=== PATIENT | female | born 1970 | race Caucasian/White ===

== ENCOUNTER 2021-03-01 06:14 | Emergency (ER) | payer MEDICARE, MEDICAID, SELFPAY ==
[2021-03-01 06:29] VITALS: BP 159/85; PULSE 83; RESP 18; TEMP 36.7; O2SAT 95; BMI 22.7
--- NOTE | 2021-03-01 06:54 | ED.DENTAL ---
HPI - Dental/Oral General Chief complaint: Dental/Oral Stated complaint: dental infection Time Seen by Provider: 03/01/21 06:18 Source: patient Mode of arrival: ambulatory Limitations: no limitations History of Present Illness HPI Narrative: Patient with swelling and pain that started 2 days ago Onset (ago): day(s) Duration: constant Severity: moderate Relieving factors: nothing Associated symptoms: other (jaw swelling) Treatment prior to arrival: oral analgesic Related Data Previous Rx's Medication Instructions Recorded amoxicillin-pot clavulanate 1 tab PO BID #20 tab 03/01/21 [Augmentin] naproxen [Naprosyn] 500 mg PO BID #20 tab 03/01/21 Allergies Allergy/AdvReac Type Severity Reaction Status Date / Time No Known Allergies Allergy Unverified 07/01/20 14:46 [No Known Allergies*] Review of Systems Constitutional: Constitutional: Reports no additional constitutional complaints Eyes: Eyes: Reports no additional eye complaints ENT: Denies dizziness Cardiovascular: Cardiovascular: Reports no additional cardiovascular complaints Respiratory: Respiratory: Reports as per HPI Gastrointestinal: Gastrointestinal: Reports no additional gastrointestinal complaints Genitourinary: Genitourinary: Reports no additional female genitourinary complaints Musculoskeletal: Musculoskeletal: Reports no additional musculoskeletal complaints Integumentary/Breasts: Skin/Breast: Denies rash Neurologic: Reports system reviewed and no additional complaints, except as documented, Denies dizziness and Denies Sensory deficit (Neuro) Psychiatric: Psychiatric: Denies anxiety PMFSH Past Medical History Medical History No known health problems Social History Social History Smoking Status: Current every day smoker Use of substances other than those prescribed or required for medical reasons: No Advance Directives: No Advance Directives Information Provided: No Patient : No Physical Exam Vital Signs: Vital Signs: Last Vital Signs Temp 98.1 F 03/01/21 06:29 Pulse 83 03/01/21 06:29 Resp 18 03/01/21 06:29 BP 159/85 H 03/01/21 06:29 Pulse Ox 95 03/01/21 06:29 Body Mass Index 22.7 Const: Other: patient is anxious and in pain Nutritional Appearance: average body habitus Orientation/consciousness: oriented to person and patient oriented x3 Limitations: no limitations HENMT: Other: right mandible with swelling and tenderness, no visible abscess or drainage, no swelling into neck Ears: external ears normal General nose exam: Normal external nose present Mouth: Normal oral and palatal mucosa present and oropharynx normal Throat: Yes posterior oropharynx normal Eyes: General: appearance normal, both eyes and all related structures Neck: Other: supple Neck: Yes normal visual inspection Chest: Chest palpation & inspection: normal inspection of the chest Resp: Auscultation: clear to auscultation bilaterally Cardio: Jugular venous distension: no JVD Rate: regular rate Rhythm: regular rhythm Heart sounds: S1 normal heart sound present and S2 normal heart sound present GI: Inspection: Yes normal to inspection Palpation (GI): Soft to palpation, nontender and No hepatosplenomegaly present Auscultation: normal bowel sounds : General: Yes no CVA tenderness Back/Spine/Pelvis: Back: no CVA tenderness Skin: General skin exam: no rashes or lesions noted Neuro: General: oriented to person and patient oriented x3 Cranial nerves: Yes CN's II-XII intact bilaterally Motor exam (neuro): 5/5 motor strength present throughout Sensory Exam: No Sensory deficit (Neuro) Extrem: General: Yes normal to inspection Psych: Appearance: grossly normal Course Course Course Narrative: will treat dental infection with augmentin Discharge Plan Discharge Clinical Impression: Dental caries, Dental abscess Fracture of tooth Qualifiers: Encounter type: subsequent encounter Fracture type: closed Fracture healing: with nonunion Qualified Code(s): S02.5XXK - Fracture of tooth (traumatic), subsequent encounter for fracture with nonunion Patient Disposition: Home, Self-Care Instructions: Dental Abscess (ED) Prescriptions: New naproxen [Naprosyn] 500 mg tablet 500 mg PO BID Qty: 20 RF: 0 amoxicillin-pot clavulanate [Augmentin] 875-125 mg tablet 1 tab PO BID Qty: 20 RF: 0 Referrals: Buzz Bermeo MD [Primary Care Provider] - 2 days
[2021-03-01] MEDS: Amoxicillin/Potassium Clav 875 MG TABLET PO (07:16)
[2021-03-01] MEDS: Ketorolac Tromethamine 60 MG/2 ML VIAL IM (07:16)
== END 2021-03-01 07:24 | disposition home or self-care (01) ==
PROVIDERS: Emergency Provider Emergency Medicine; PCP Internal Medicine
DX: K02.9 Dental caries, unspecified (principal); K04.7 Periapical abscess without sinus; S02.5XXA Fracture of tooth (traumatic), initial encounter for closed fracture; X58.XXXA Exposure to other specified factors, initial encounter; Y93.9 Activity, unspecified; Y92.9 Unspecified place or not applicable; Y99.9 Unspecified external cause status; F17.200 Nicotine dependence, unspecified, uncomplicated
CPT/HCPCS: 96372; 99284; J1885

== ENCOUNTER 2024-07-17 16:39 | Inpatient (IN) | payer MEDICARE, MEDICAID, SELFPAY ==
[2024-07-17] VITALS (10 sets, daily range): BP systolic 102–109; BP diastolic 51–72; PULSE 52–93; RESP 16–18; TEMP 36.6–39.3; O2SAT 62–95; BMI 21.9
--- NOTE | ~2024-07-17 | XR_ITS ---
EXAMINATION: XR CHEST CLINICAL INFORMATION: Pneumonia COMPARISON: 07/17/2024 TECHNIQUE: AP portable up view of the chest was obtained. FINDINGS: Extensive hazy opacity throughout the right lung that improvement. Additional patchy opacity at the left base without improvement. Lung volumes preserved. No gross effusion or pneumothorax. Stable heart and mediastinum without obvious mass or adenopathy. Nonobstructive gas pattern. XR/XR chest 1V IMPRESSION: No improvement in right greater than left airspace disease. Electronically signed by: Xavier Jackson MD 07/19/2024 10:43 AM EDT
--- NOTE | ~2024-07-17 | CT_ITS ---
EXAMINATION: CT CHEST WITHOUT CONTRAST CLINICAL INFORMATION: Right-sided infiltrate COMPARISON: Chest x-ray 07/19/2024 TECHNIQUE: Multidetector volumetric CT imaging of the chest was done. Axial MIP volume rendering provided. Sagittal and coronal reformatted images were obtained. This CT examination was performed using dose optimization techniques as appropriate, variously including the following: *Automated exposure control *Adjustment of mA and/or kV according to patient size (this includes techniques or standardized protocols for targeted exams where dose is matched to indication/reason for exam; i.e. extremities or head) *Use of iterative reconstruction technique DLP: 176 mGy-cm FINDINGS: RADIOLOGIST PHYSICIAN: Well-inflated lungs with increased reticular interstitial markings right lung. LUNGS: Both lungs are well-inflated with groundglass haziness seen throughout the right hemithorax and left upper lobe likely secondary to inflammatory or infectious etiology. There is no acute consolidation or airspace disease. No pulmonary nodules or masses seen. MEDIASTINUM: Thyroid lobes are symmetric and normal. The central trachea and the bronchi are widely patent. Heart size and the great vessels are normal caliber. There is a small pericardial effusion. There are reactive pretracheal 1 cm lymph node. No pericardial effusion seen. CORONARY ARTERY CALCIFICATION: None visualized on this study. PLEURA: Small bilateral pleural effusions with underlying atelectasis is noted. AXILLA: There are small bilateral axillary lymph nodes. The chest wall is unremarkable. UPPER ABDOMEN: Visualized liver, spleen, pancreas and bilateral adrenal glands are unremarkable. The gallbladder is unremarkable. OSSEOUS STRUCTURES: No aggressive lytic or sclerotic process seen. CT/CT chest wo IV con IMPRESSION: 1. Diffuse groundglass haziness throughout the right hemithorax and left upper lobe likely secondary to inflammatory or infectious etiology. 2. Small bilateral pleural effusions with underlying atelectasis. 3. Small pericardial effusion. 4. Small reactive pretracheal lymph node. Fleischner guidelines were followed. Electronically signed by: Bryan Howard MD 07/21/2024 07:38 PM EDT
--- NOTE | ~2024-07-17 | XR_ITS ---
EXAMINATION: XR CHEST CLINICAL INFORMATION: Cough. COMPARISON: Chest radiograph 02/11/2024. TECHNIQUE: 2 views of the chest were obtained. FINDINGS: New multifocal hazy and consolidative airspace opacities predominantly in the right lung with minimal opacities in the left lower lung. No pleural effusion. No pneumothorax. Unchanged cardiomediastinal silhouette. No acute osseous findings. XR/XR chest 2V IMPRESSION: Findings are most suggestive of a multifocal atypical pneumonia. Recommend close attention on follow-up after treatment to ensure resolution. Electronically signed by: Sri Harman MD 07/17/2024 07:12 PM EDT
--- NOTE | 2024-07-17 17:35 | ED.GENADULT ---
HPI - General Adult General Chief complaint: Upper Respiratory Symptoms Stated complaint: not feeling well, increased tremors Time Seen by Provider: 07/17/24 18:45 Source: patient Mode of arrival: ambulatory Limitations: no limitations History of Present Illness ED Provider: Nai [facility] narrative: Patient is a 54-year-old female with history of bipolar disorder, depression/anxiety, opiate use disorder on methadone, sober x5 months presenting to the emergency department with fevers, generalized body aches, weakness, tremors for the past 2-3 days. States that when she went to get out of bed last night she was so weak that she fell to her knees. Denies head strike or loss of consciousness. She is not anticoagulated. States she has been using lshl-gcb-heyytco [place] and other cold medications but is unsure if these are interacting with her psychiatric medications. recently tested positive for COVID. Denies any chest pain or palpitations. Denies any abdominal pain, nausea, vomiting, diarrhea. MD complaint: body aches Onset (ago): day(s) Treatments prior to arrival: other (OTC cold medication) Related Data Previous Rx's ?Medication ?Instructions ?Recorded amoxicillin 875 mg-potassium 1 tab PO BID #20 tabs 03/01/21 clavulanate 125 mg tablet (Augmentin) naproxen 500 mg tablet (Naprosyn) 500 mg PO BID #20 tabs 03/01/21 Allergies Allergy/AdvReac Type Severity Reaction Status Date / Time No Known Allergies Allergy Verified 07/17/24 17:42 [No Known Allergies*] Review of Systems Review of Systems: As per HPI. Yes all other systems are reviewed and are negative Constitutional: Constitutional: Reports as per HPI [facility] Past Medical History Medical History No known health problems Social History Social History Advance Directives: Yes Advance Directives Information Provided: No Advance Directives on File: No Do you have a plan to hurt others: No Plan Physical Exam ED Vital Signs: Vital Signs - 24 hr 07/17/24 17:35 07/17/24 19:07 07/17/24 20:00 Temperature 102.7 F H 101.8 F H 99.2 F Pulse Rate 93 76 Respiratory Rate 18 16 Blood Pressure 109/62 107/51 L Pulse Oximetry 94 62 L Oxygen Delivery Method Room Air Room Air BMI result Body Mass Index 21.9 Vital signs have been reviewed and appear to be correct. Blood pressure normal. Heart rate normal. Respiratory rate normal. Temperature febrile. Oxygen saturation normal. Const General: cooperative, healthy appearing and no acute distress Orientation/consciousness: oriented to person, oriented to place, oriented to time and patient oriented x3 Limitations: no limitations HENMT Head: Yes normocephalic and Yes atraumatic Ears: external ears normal General nose exam: Normal external nose present Face and sinus: Yes face symmetric Mouth: oropharynx normal and moist mucous membranes Throat: Yes uvula midline Eyes Pupils: Equal, round and reactive pupils present Neck Neck: Yes normal visual inspection and Yes supple Resp Effort & Inspection: normal respiratory effort and able to speak in complete sentences Auscultation: clear to auscultation bilaterally Cardio Rate: regular rate Rhythm: regular rhythm Heart sounds: S1 normal heart sound present and S2 normal heart sound present GI Palpation (GI): Soft to palpation and nontender Auscultation: normoactive bowel sounds General: Yes no CVA tenderness Back/Spine/Pelvis Back: no CVA tenderness Skin Other: visible sweat to face, chest General skin exam: elasticity normal and turgor normal Neuro General: oriented to person, oriented to place, oriented to time, patient oriented x3, moves all extremities, no focal motor deficits and CN's II-XI intact bilaterally Cranial nerves: Yes Equal, round and reactive pupils present Cognition (Neuro): normal cognition Extrem General: Yes full ROM, Yes no pedal edema and Yes no calf tenderness Psych Mental Status: mental status grossly normal Affect: normal affect Thought process: Normal thought process present Course Course Course Narrative: This is a Rapid Medical Examination (RME) performed by Hay Floyd PA-C in triage. Full HPI, ROS, assessment and treatment plan per primary provider in the Main ED. 54 yo female with history of bipolar disorder, depression/anxiety, opiate use disorder on methadone, sober x5 months, who presents to the ER from home via EMS for evaluation of not feeling well and tremors. reports weakness and fall out of bed last night. no head strike of LOC, fell onto her knees. thinks the OTC cold meds are interacting with her psych meds. she has a cough, body aches. no abdominal pain, N/V/D. poor PO intake. recently had COVID. Plan: labs, CXR, COVID Medications Administered Discontinued Medications Generic Name Dose Route Start Last Admin Trade Name Keith PRN Reason Stop Dose Admin Acetaminophen 975 mg 07/17/24 17:43 07/17/24 17:45 Acetaminophen 325 Mg Tablet PO 07/17/24 17:44 975 mg ONCE ONE Administration Medical Decision Making Medical Decision Making [facility] Narrative: Patient is a 54-year-old female with history of bipolar disorder, depression/anxiety, opiate use disorder on methadone, sober x5 months presenting to the emergency department with fevers, generalized body aches, weakness, tremors for the past 2-3 days. On exam patient is awake, A+Ox3, VS WNL, febrile, normal neurological exam without focal deficits, physical exam findings as above. Given reported symptoms and physical exam findings, initial differential includes viral illness, COVID, flu, bronchitis, pneumonia, UTI. Labs notable for leukocytosis with left shift, no evidence of ERICA. Urine drug screen notable only for methadone. Urinalysis notable for 3+ leukocytes, 3+ blood, greater than 50 wbc's, 4+ bacteria, will treat for UTI. When asked about this, patient now reports dysuria, frequency. X-ray chest notable for multifocal atypical pneumonia. My interpretation is in agreement with the radiologist's interpretation. Viral serology negative. Upon reassessment, patient now noted to be hypoxic to 88-90% on 2lpm via NC. Feel patient will require admission for IV antibiotics and O2. Admission to medicine accepted by Dr. Grossman. Differential Diagnosis Differential Diagnoses: The differential diagnosis associated with the presentation includes as per [facility] Admission/Observation Consideration of admission/observation: Escalation of care including admission/observation considered Patient would have been admitted to the hospital had their work up had any findings where hospital admission was appropriate and their clinical presentation warranted hospital admission. Lab Data [facility] Lab Attestation statement: I reviewed the patient's lab results. As per [facility] 07/17/24 19:28 07/17/24 19:28 Labs: Lab Results 07/17/24 Range/Units 19:28 WBC 14.6 H (4.8-10.8) X10*3/uL RBC 3.46 L (4.20-5.50) X10*6/uL Hgb 10.4 L (12.0-16.0) g/dl Hct 31.6 L (37.0-47.0) % MCV 91.3 (80.0-98.0) fL MCH 30.1 (27.0-33.0) pg MCHC 32.9 (31.0-35.0) g/dl RDW 15.7 (11.0-16.0) % Plt Count 312 (160-400) X10*3/uL MPV 9.4 (9.4-12.3) fL Immature Gran % (Auto) 1.9 H (0.0-0.4) % Neut % (Auto) 77.1 H (45-73) % Lymph % (Auto) 15.2 L (20-40) % Bowie % (Auto) 5.1 (2-11) % Eos % (Auto) 0.2 (0-4) % Baso % (Auto) 0.5 (0-2) % Lymph # (Auto) 2.2 (1.2-4.9) X10*3/uL Bowie # (Auto) 0.7 (0.1-1.2) X10*3/uL Eos # (Auto) 0.0 (0.0-0.4) X10*3/uL Baso # (Auto) 0.1 (0.0-0.2) X10*3/uL Abs Immat Gran (auto) 0.28 H (0.00-0.03) X10*3/uL Absolute Neuts (auto) 11.2 H (2.0-8.3) x10*3/uL Absolute Nucleated RBC 0.090 H (0.0-0.012) X10*3/uL Nucleated RBC % (auto) 0.6 H (0.0-0.2) /100WBC Sodium 144 (135-145) mmol/L Potassium 4.1 (3.3-5.1) mmol/L Chloride 104 (96-108) mmol/L Carbon Dioxide 28 (22-29) mmol/L Anion Gap 16 (12-20) BUN 19 H (9-16) mg/dL Creatinine 0.84 (0.5-1.4) mg/dL Estim Creat Clear Calc 75.3 Estimated GFR > 60 Random Glucose 117 H (60-115) mg/dL Calcium 9.3 (8.4-10.2) mg/dL Magnesium 1.9 (1.6-2.6) mg/dL Total Bilirubin 0.5 (0.0-1.0) mg/dL Direct Bilirubin 0.3 (0.0-0.5) mg/dL AST 24 (5-31) U/L ALT 12 (0-31) U/L Alkaline Phosphatase 151 H (39-117) U/L Total Creatine Kinase 52 (26-140) U/L Total Protein 7.1 (6.5-8.0) g/dL Albumin 3.4 L (3.5-5.0) g/dL Urine Color Dark Yellow Urine Appearance Turbid Urine pH 5.5 (5.0-9.0) Ur Specific [place] 1.025 (1.005-1.025) Urine Protein 100 (2+) H (Neg-Trace) mg/dL Urine Glucose (UA) Negative (Negative) mg/dL Urine Ketones Trace (Negative) mg/dL Urine Blood Large (3+) H (Negative) Urine Nitrite Negative (Negative) Ur Leukocyte Esterase Large (3+) H (Negative) Urine RBC 6-10 H (0-2) /HPF Urine WBC >50 H (0-5) /HPF Ur Squamous Epith Cells 11-20 (0-2) /HPF Urine Bacteria 4+ (None Seen) Hyaline Casts 3-5 (0-2) /LPF Urine Opiates Screen Not Detected (Not Detect) Ur Buprenorphine Scrn Not Detected (Not Detect) ng/mL Ur Oxycodone Screen Not Detected (Not Detect) ng/mL Urine Methadone Screen Positive H (Not Detect) ng/mL Urine Fentanyl Screen Not Detected (Not Detect) Ur Barbiturates Screen Not Detected (Not Detect) Ur Phencyclidine Scrn Not Detected (Not Detect) Ur Amphetamines Screen Not Detected (Not Detect) U Benzodiazepines Scrn Not Detected (Not Detect) Urine Cocaine Screen Not Detected (Not Detect) U Marijuana (THC) Screen Not Detected (Not Detect) Ethyl Alcohol < 10 mg/dL Influenza Type A (PCR) NEGATIVE (Negative) Influenza Type B (PCR) NEGATIVE (Negative) RSV RNA Qual (PCR) NEGATIVE (Negative) SARS-CoV-2 RNA (RT-PCR) NEGATIVE (Negative) Independent Interpretation I performed an independent interpretation of an: Plain X-Ray Interpretation: CXR shows multifocal atypical pneumonia External Record Review External record reviewed: Inpatient record, Office record and Outpatient record Prescription Management I considered prescription management with: Antibiotic Discharge Plan Discharge Clinical Impression: Multifocal pneumonia, UTI (urinary tract infection) Patient Disposition: Admitted As Inpatient Prescriptions: No Action naproxen [Naprosyn] 500 mg tablet 500 mg PO BID Qty: 20 0RF amoxicillin-pot clavulanate [Augmentin] 875-125 mg tablet 1 tab PO BID Qty: 20 0RF Print Language: Turkish
[2024-07-17] MEDS: Acetaminophen 325 MG TABLET 975 MG PO (17:45)
[2024-07-17 19:35] LABS: MANUAL DIFF FLAG NO
[2024-07-17 19:37] LABS: Appearance Urine Turbid; Basophils Absolute Auto 0.1 X10*3/uL (0.0-0.2); Basophils Percent Auto 0.5 % (0-2); Color Urine Dark Yellow; Eosinophils Percent Auto 0.2 % (0-4); Glucose Urine UA Negative (Negative); Hematocrit 31.6 % (37.0-47.0); Hemoglobin 10.4 g/dl (12.0-16.0); Imm Gran Abs Auto 0.28 X10*3/uL (0.00-0.03); Imm Gran Pct Auto 1.9 % (0.0-0.4); Leukocyte Esterase Urine Large (3+) (Negative); Lymphocytes Absolute Auto 2.2 X10*3/uL (1.2-4.9); Lymphocytes Percent Auto 15.2 % (20-40); Mean Corpuscular HGB Conc 32.9 g/dl (31.0-35.0); Mean Corpuscular Hemoglobin 30.1 pg (27.0-33.0); Mean Corpuscular Volume 91.3 fL (80.0-98.0); Mean Platelet Volume 9.4 fL (9.4-12.3); Monocytes Absolute Auto 0.7 X10*3/uL (0.1-1.2); Monocytes Percent Auto 5.1 % (2-11); NRBC Pct Auto 0.6 /100WBC (0.0-0.2); Neutrophils Absolute Auto 11.2 x10*3/uL (2.0-8.3); Neutrophils Percent Auto 77.1 % (45-73); Nitrite Urine Negative (Negative); PH 5.5 (5.0-9.0); Platelet Count 312 X10*3/uL (160-400); Red Blood Count 3.46 X10*6/uL (4.20-5.50); Red Cell Distribution Width 15.7 % (11.0-16.0); Specific Gravity - Urine 1.025 (1.005-1.025); UMIC TRIGGER UACC YES; Urine Blood Large (3+) (Negative); Urine Ketones Trace mg/dL (Negative); Urine Protein 100 (2+) mg/dL (Neg-Trace); White Blood Count 14.6 X10*3/uL (4.8-10.8)
[2024-07-17 19:39] LABS: Bacteria Urine 4+ (None Seen); UACC Culture Trigger YES; WBC Urine >50 /HPF (0-5)
[2024-07-17 19:50] LABS: Amphetamine Screen Urine Not Detected (Not Detect); Barbiturates, Urine Not Detected (Not Detect); Benzodiazepines Screen Urine Not Detected (Not Detect); Buprenorphine Scr Not Detected (Not Detect); Cannabinoid Screen Urine Not Detected (Not Detect); Cocaine Screen Urine Not Detected (Not Detect); Fentanyl, urine Not Detected (Not Detect); Methadone Screen, Urine Positive (Not Detect); Opiate Screen Urine Not Detected (Not Detect); Oxycodone Screen Urine Not Detected (Not Detect); Phencyclidine Screen Urine Not Detected (Not Detect)
[2024-07-17 19:55] LABS: Alanine Aminotransferase 12 U/L (0-31); Albumin Level 3.4 g/dL (3.5-5.0); Alkaline Phosphatase 151 U/L (39-117); Anion Gap 16 (12-20); Aspartate Amino Transferase 24 U/L (5-31); Bilirubin Direct 0.3 mg/dL (0.0-0.5); Bilirubin Total 0.5 mg/dL (0.0-1.0); Blood Urea Nitrogen 19 mg/dL (9-16); Calcium 9.3 mg/dL (8.4-10.2); Carbon Dioxide 28 mmol/L (22-29); Chloride 104 mmol/L (96-108); Creatinine Clr Calc Pharmacy 75.3; Estimated Glomerular Filt Rate > 60; Ethanol < 10 mg/dL; Glucose Random 117 mg/dL (60-115); Magnesium 1.9 mg/dL (1.6-2.6); Potassium 4.1 mmol/L (3.3-5.1); Sodium 144 mmol/L (135-145); Total Protein 7.1 g/dL (6.5-8.0)
[2024-07-17 20:16] LABS: Influenza A PCR NEGATIVE (Negative); Influenza B PCR NEGATIVE (Negative); Resp Syncy Virus RNA Qual PCR NEGATIVE (Negative); SARS COV2 PCR INHOUSE NEGATIVE (Negative)
[2024-07-17] MEDS: dexAMETHasone sod phosphate 4 MG/ML VIAL 6 MG IVPUSH (21:01)
--- NOTE | 2024-07-17 21:05 | P.HPHOSP_ITS ---
History of Present Illness Date of Service: 07/17/24 Attending physician on admission: Devendra Jin Chief Complaint: SOB, weakness Pt is a 54-year-old female with a PMH significant for opiate use disorder on methadone and sober x5 months, depression/anxiety, and bipolar disorder who presents to the ED with?for evaluation of SOB and generalized weakness. Patient reports symptoms began 5 days ago when she started to feel ?weird?. Developed mostly nonproductive cough, shortness of breath, difficulty breathing, and became tired and lethargic. States she has been sleeping and in bed all day for the past 2 days. Patient's was also sick with respiratory symptoms that preceded the patient's and apparently he thought he had COVID but did not test for it. Patient thought she likely had COVID as well. Last night patient reports she was too weak to stand and slid to the floor, though was able to get herself up. This morning symptoms were even worse and patient could not hold on to anything, including her coffee cup. Lower leg weakness persisted and patient's legs gave out on her and she sank to her knees and was unable to stand up. Subjective fever and chills, though did not take her temperature. Patient denies chest pain/pressure, palpitations. No nausea, vomiting, abdominal pain. Denies polyuria or dysuria. Patient currently smokes 1 pack daily. In the ED pt was febrile up to 102.7, with elevated HR of 93, soft BP of 107/51, and desatting as low as 62% on RA. Labs were significant for leukocytosis of 14.6, normocytic anemia of 10.4/31.6, and alk-phos 151. No significant electrolyte abnormalities. Renal function WNL. UA consistent with UTI. Tested negative for flu, RSV, and COVID. CXR showed findings most suggestive of multifocal atypical pneumonia. Pt was treated with acetaminophen, ibuprofen, doxycycline, and ceftriaxone. Pt will be admitted to the hospital for treatment and further evaluation of acute hypoxic respiratory failure in the setting of multifocal atypical pneumonia with sepsis. Review of Systems 2 Review of Systems: SOB, HUFFMAN Generalized weakness Fatigue, malaise Subjective fever and chills Cough PMFSH Medical History (Updated 07/17/24 @ 22:28 by SALVATORE Lucia) Bipolar disorder MDD (major depressive disorder) Anxiety Opioid use disorder No known health problems Social History Advance Directives: Yes Advance Directives Information Provided: No Advance Directives on File: No Do you have a plan to hurt others: No Plan Meds Allergies Allergy/AdvReac Type Severity Reaction Status Date / Time No Known Allergies Allergy Verified 07/17/24 17:42 [No Known Allergies*] Physical Exam 2 Vital Signs and Narrative: Vital Signs: Last Vital Signs Temp 99.2 F 07/17/24 20:00 Pulse 76 07/17/24 20:00 Resp 16 07/17/24 20:00 BP 107/51 L 07/17/24 20:00 Pulse Ox 62 L 07/17/24 20:00 O2 Del Method Room Air 07/17/24 20:00 BMI result Body Mass Index 21.9 General: AOx3, no acute distress Resp: Diffuse coarse breath sounds. Capable of speaking in complete sentences. In no acute respiratory distress CVS: S1, S2, RRR GI: +BS, NT, no distention Skin: Warm, dry Neuro: Cranial nerves II-XII grossly intact bilaterally. Motor grossly intact bilaterally Extremities: No edema Psych: Appropriate affect Results Labs 07/17/24 19:28 07/17/24 19:28 Labs: Laboratory Results - last 24 hr 07/17/24 19:28 MCV 91.3 MCH 30.1 MCHC 32.9 RDW 15.7 Plt Count 312 MPV 9.4 Immature Gran % (Auto) 1.9 H Neut % (Auto) 77.1 H Lymph % (Auto) 15.2 L Wheeler % (Auto) 5.1 Eos % (Auto) 0.2 Baso % (Auto) 0.5 Lymph # (Auto) 2.2 Wheeler # (Auto) 0.7 Eos # (Auto) 0.0 Baso # (Auto) 0.1 Abs Immat Gran (auto) 0.28 H Absolute Neuts (auto) 11.2 H Absolute Nucleated RBC 0.090 H Nucleated RBC % (auto) 0.6 H Anion Gap 16 Estim Creat Clear Calc 75.3 Estimated GFR > 60 Random Glucose 117 H Calcium 9.3 Magnesium 1.9 Total Bilirubin 0.5 Direct Bilirubin 0.3 AST 24 ALT 12 Alkaline Phosphatase 151 H Total Creatine Kinase 52 Total Protein 7.1 Albumin 3.4 L Urine Color Dark Yellow Urine Appearance Turbid Urine pH 5.5 Ur Specific [place] 1.025 Urine Protein 100 (2+) H Urine Glucose (UA) Negative Urine Ketones Trace Urine Blood Large (3+) H Urine Nitrite Negative Ur Leukocyte Esterase Large (3+) H Urine RBC 6-10 H Urine WBC >50 H Ur Squamous Epith Cells 11-20 Urine Bacteria 4+ Hyaline Casts 3-5 Urine Opiates Screen Not Detected Ur Buprenorphine Scrn Not Detected Ur Oxycodone Screen Not Detected Urine Methadone Screen Positive H Urine Fentanyl Screen Not Detected Ur Barbiturates Screen Not Detected Ur Phencyclidine Scrn Not Detected Ur Amphetamines Screen Not Detected U Benzodiazepines Scrn Not Detected Urine Cocaine Screen Not Detected U Marijuana (THC) Screen Not Detected Ethyl Alcohol < 10 Influenza Type A (PCR) NEGATIVE Influenza Type B (PCR) NEGATIVE RSV RNA Qual (PCR) NEGATIVE SARS-CoV-2 RNA (RT-PCR) NEGATIVE Imaging Radiologist's Impressions: Impressions Chest X-Ray 07/17/24 18:00 IMPRESSION: Findings are most suggestive of a multifocal atypical pneumonia. Recommend close attention on follow-up after treatment to ensure resolution. Electronically signed by: Sri Harman MD 07/17/2024 07:12 PM EDT RP Assessment and Plan (1) Acute hypoxic respiratory failure: Status: Acute (2) Multifocal pneumonia: Status: Acute (3) UTI (urinary tract infection): Status: Acute Plan Pt is a 54-year-old female with a PMH significant for opiate use disorder on methadone and sober x5 months, depression/anxiety, and bipolar disorder who presents to the ED with?for evaluation of SOB and generalized weakness. Pt will be admitted to the hospital for treatment and further evaluation of acute hypoxic respiratory failure in the setting of multifocal atypical pneumonia with sepsis. Acute hypoxic respiratory failure in the setting of multifocal pneumonia Patient with SOB, HUFFMAN, fatigue, cough, and CXR showing likely multifocal atypical pneumonia Patient significantly hypoxic, desatting as low as 62% on RA Patient meets sepsis criteria: Fever, tachycardia, leukocytosis Will check lactic acid Will treat with ceftriaxone and doxycycline, started 07/17/2024 Will give 1L IVF UTI UA consistent with acute UTI Treat as above with antibiotics Follow urine culture Opioid use disorder Continue methadone Mood disorder Continue home meds Full Code Attending:?Dr. Grossman DVT Prophylaxis: Lovenox Pt will require a hospitalization of at least two nights for treatment of?acute hypoxic respiratory failure in the setting of multifocal pneumonia with sepsis. Patient will require hospital level of care for administration of IV antibiotics, IV fluids, supplemental oxygen, and close monitoring of respiratory status. Quality Stroke Does the patient have a stroke diagnosis?: No VTE Prior VTE?: No VTE Risk Level:: Medical - moderate - high VTE Device Contraindication: Treatment Not Indicated VTE Drug Contraindication: N/A - Med Ordered
[2024-07-17] MEDS: cefTRIAXone sodium 1 GM in 0.9 % Sodium Chloride 50 ML IV (21:07)
[2024-07-17] MEDS: Doxycycline Monohydrate 100 MG CAPSULE PO (21:15)
[2024-07-17] MEDS: Ibuprofen 600 MG TABLET PO (21:15)
--- NOTE | 2024-07-17 22:11 | PC.NURSE ---
Tech made this nurse aware that patients o2 was in 60's on RA this nurse went and checked on the pt upon ax and trying different O2 probes o2 rised to the mid 70's pt was thrown on 2L Nasal canula PT o2 improved but still in high 80's
--- NOTE | 2024-07-17 22:25 | PC.NURSE ---
PT put on 4L on oxi mask O2 sat 89%
--- NOTE | 2024-07-17 22:31 | PC.NURSE ---
SHUCKER at bedside after being made aware of patients O2 levels orders placed for IV antibiotics/steroids. PT has remained on nasal cannula and transitioned to Oxy mask due to mouth breathing while sleeping O2 sats remain between 86-98% on 4L on oxy mask.
--- NOTE | 2024-07-17 22:52 | PC.NURSE ---
Pt brought into [facility] room and picked up by provider approx around 1900, Pt was waiting to be seen by the provider at this time plan is for patient to be DC home, as noted in previous note pt O2 in the 70's at this time provider ordered IV antibiotics along with PO antibiotics, and steroids, at this time pt then changed to pending admission. At this time blood cultures had not been obtained, provider aware but no new orders placed. No fluids ordered at this time. Pt was then admitted to the hospital at this time approx around 2245 the hospitalist deamed pt to be a sepsis alert. Provider notified no previous blood cultures/lactic drawn, made aware they have received antibiotics, orders being drawn at this time, LR 1L bolus ordered by hospitalist at this time.
[2024-07-17 22:53] LABS: Lactic Acid 0.7 mmol/L (0.5-2.0)
[2024-07-17] MEDS: Lactated Ringers 1,000 ML 999 ML IV (23:36)
[2024-07-18] VITALS (11 sets, daily range): BP systolic 100–128; BP diastolic 59–79; PULSE 50–100; RESP 16–22; TEMP 36.3–36.9; O2SAT 5–94
--- NOTE | 2024-07-18 | ECG_ITS ---
Test Reason : BRADYCARDIA Blood Pressure : / mmHG Vent. Rate : 048 BPM Atrial Rate : 048 BPM P-R Int : 132 ms QRS Dur : 074 ms QT Int : 536 ms P-R-T Axes : 053 068 064 degrees QTc Int : 478 ms Sinus bradycardia Cannot rule out Anterior infarct , age undetermined Abnormal ECG No previous ECGs available Referred By: Devendra Jin Electronically Signed By:TRELL ALBERTO
--- NOTE | 2024-07-18 00:20 | PC.NURSE ---
assumed care of pt at this time.
--- NOTE | 2024-07-18 00:51 | PC.NURSE ---
Addendum entered by Salinas Hayden 07/18/24 00:56: poc 118. Original Note: pt is diaphoretic, easily arousable however appears and verbalizes drowsiness. heart rate high 40s-50s. bp 91/55. made aware.
[2024-07-18] MEDS: Enoxaparin Sodium 40 MG/0.4 ML SYRINGE SUBCUT ×2 (00:52→22:06)
[2024-07-18 01:00] LABS: Glucose, Whole Blood 118 mg/dL (60-115)
[2024-07-18] MEDS: 0.9 % Sodium Chloride 1,000 ML 999 ML IV (01:03)
[2024-07-18 01:31] LABS: VBG Base Excess 7.7 mmol/L; VBG HCO3 32 mmol/L (22-26); VBG pCO2 46 mmHg; VBG pH 7.45 (7.32-7.43); VBG pO2 65 mmHg
[2024-07-18 01:32] LABS: Venous Blood Gas Refer to POC result
--- NOTE | 2024-07-18 03:03 | PC.NURSE ---
patient takes 115 mg of Methadone daily. Goes to [facility] on [facility] in [place].
[2024-07-18] MEDS: Doxycycline Hyclate 100 MG in 0.9 % Sodium Chloride 250 ML 166.67 MG IV ×2 (08:52→20:17)
--- NOTE | 2024-07-18 08:58 | HE.PHANOTE ---
RE: methadone Last dose at [facility] on 07/15/24 for 115mg
--- NOTE | 2024-07-18 10:02 | PHA.MEDREC ---
Addendum entered by Fatmata Alvarado RPh 07/18/24 10:22: Reviewed by [facility]. Original Note: Pharmacy Consult ? Medication Reconciliation Pharmacy has completed the medication reconciliation. Spoke to patient and confirmed medications with her. Patient states she is taking Quetiapine 300mg 1 tab BID and Hydroxizine 25mg 2 tab TID and filling at [facility] on [address], I looked in claims and it looked like they were not filled and when I called and asked [facility] confirmed they are filling those medications today for the patient and confirmed the dosing and directions on how patient is taking them. Patient was confused and was not sure when they last took their medications saying maybe yesterday or the day before.
[2024-07-18] MEDS: methADONE HCl 20 MG/2 ML ORAL.CONC 115 MG PO (10:12)
[2024-07-18] MEDS: 0.9 % Sodium Chloride Flush 3 ML SYRINGE IVFLUSH ×3 (10:15→22:07)
--- NOTE | 2024-07-18 10:24 | P.PNIM_ITS ---
Subjective Subjective Date of Service: 07/18/24 Interval History: seen and evaluated this morning feels little better O2 of 90s on 5L no other overnight events Review of Systems Review of Systems: Yes all other systems are reviewed and are negative Physical Exam 2 Vital Signs: Vital Signs: Last Vital Signs Temp 97.3 F 07/18/24 07:15 Pulse 50 07/18/24 07:15 Resp 18 07/18/24 07:15 BP 122/69 07/18/24 07:15 Pulse Ox 90 L 07/18/24 07:15 O2 Del Method Oxymask 07/18/24 07:15 O2 Flow Rate 5 07/18/24 07:15 Oxygen Flow Rate 4 07/17/24 23:45 BMI result Body Mass Index 21.9 Const: Other: Constitutional : Awake, interactive, not in distress Neck : Normal inspection, Supple Cardiovascular : RRR, no JVP, no lower extremity edema Respiratory : good bilateral air entry, basal fine bilaterally crackles, wheezes or rhonchi Gastrointestinal: soft, lax, Normal bowel sounds, Non tender Skin : Warm, Dry Neurological : Alert & oriented x3, No focal deficit Objective Data Active Medications Acetaminophen (Acetaminophen 325 Mg Tablet) 650 mg PO Q6H PRN PRN Reason: Pain, Mild (Pain Scale 1-3), fever or headache Benzonatate (Benzonatate 100 Mg Capsule) 100 mg PO TID PRN PRN Reason: Cough Calcium Carbonate (Calcium Carbonate 750 Mg Tab.Chew) 750 mg PO Q4H PRN PRN Reason: Heartburn Enoxaparin Sodium (Enoxaparin Sodium 40 Mg/0.4 Ml Syringe) 40 mg SUBCUT Q24H [facility] Last Admin: 07/18/24 00:52 Dose: 40 mg Documented By: MARYSOL Escitalopram Oxalate (Escitalopram Oxalate 20 Mg Tablet) 20 mg PO DAILY [facility] Doxycycline Hyclate 100 mg/ (Sodium Chloride) 250 mls @ 166.67 mls/hr IV Q12H [facility] Last Admin: 07/18/24 08:52 Dose: 166.67 mls/hr Documented By: MELECIO Ceftriaxone Sodium 1 gm/ (Sodium Chloride) 50 mls @ 100 mls/hr IV Q24H [facility] Lamotrigine (Lamotrigine 100 Mg Tablet) 100 mg PO DAILY [facility] Magnesium Hydroxide (Milk Of Magnesia 30 Ml Oral.Susp) 30 ml PO DAILY PRN PRN Reason: Constipation Melatonin (Melatonin 3 Mg Tablet) 6 mg PO BEDTIME PRN PRN Reason: Insomnia Methadone HCl (Methadone Hcl 20 Mg/2 Ml Oral.Conc) 115 mg PO DAILY [facility] Last Admin: 07/18/24 10:12 Dose: 115 mg Documented By: MELECIO Co-signed By: ZAIDA Nicotine (Nicotine 21 Mg Patch.Td24) 21 mg TRANSDERMA DAILY [facility] Last Admin: 07/18/24 08:57 Dose: Not Given Documented By: MELECIO Non-Admin Reason: Patient Refused Ondansetron HCl (Ondansetron Hcl 4 Mg/2 Ml Vial) 4 mg IVPUSH Q8H PRN PRN Reason: Nausea and Vomiting Sodium Chloride (0.9 % Sodium Chloride Flush 3 Ml Syringe) 3 ml IVFLUSH QSHIFT [facility] Last Admin: 07/18/24 10:15 Dose: 3 ml Documented By: MELECIO Labs 07/17/24 19:28 07/17/24 19:28 Labs: Laboratory Results - last 24 hr 07/17/24 07/17/24 07/18/24 19:28 22:34 00:54 MCV 91.3 MCH 30.1 MCHC 32.9 RDW 15.7 Plt Count 312 MPV 9.4 Immature Gran % (Auto) 1.9 H Neut % (Auto) 77.1 H Lymph % (Auto) 15.[address] % (Auto) 5.1 Eos % (Auto) 0.2 Baso % (Auto) 0.5 Lymph # (Auto) 2.2 [facility] # (Auto) 0.7 Eos # (Auto) 0.0 Baso # (Auto) 0.1 Abs Immat Gran (auto) 0.28 H Absolute Neuts (auto) 11.2 H Absolute Nucleated RBC 0.090 H Nucleated RBC % (auto) 0.6 H VBG pH VBG pCO2 VBG pO2 VBG HCO3 VBG O2 Saturation VBG Base Excess Anion Gap 16 Estim Creat Clear Calc 75.3 Estimated GFR > 60 POC Glucose 118 H Random Glucose 117 H Lactic Acid 0.7 Calcium 9.3 Magnesium 1.9 Total Bilirubin 0.5 Direct Bilirubin 0.3 AST 24 ALT 12 Alkaline Phosphatase 151 H Total Creatine Kinase 52 Total Protein 7.1 Albumin 3.4 L Urine Color Dark Yellow Urine Appearance Turbid Urine pH 5.5 Ur Specific [place] 1.025 Urine Protein 100 (2+) H Urine Glucose (UA) Negative Urine Ketones Trace Urine Blood Large (3+) H Urine Nitrite Negative Ur Leukocyte Esterase Large (3+) H Urine RBC 6-10 H Urine WBC >50 H Ur Squamous Epith Cells 11-20 Urine Bacteria 4+ Hyaline Casts 3-5 Urine Opiates Screen Not Detected Ur Buprenorphine Scrn Not Detected Ur Oxycodone Screen Not Detected Urine Methadone Screen Positive H Urine Fentanyl Screen Not Detected Ur Barbiturates Screen Not Detected Ur Phencyclidine Scrn Not Detected Ur Amphetamines Screen Not Detected U Benzodiazepines Scrn Not Detected Urine Cocaine Screen Not Detected U Marijuana (THC) Screen Not Detected Ethyl Alcohol < 10 Influenza Type A (PCR) NEGATIVE Influenza Type B (PCR) NEGATIVE RSV RNA Qual (PCR) NEGATIVE SARS-CoV-2 RNA (RT-PCR) NEGATIVE 07/18/24 01:23 MCV MCH MCHC RDW Plt Count MPV Immature Gran % (Auto) Neut % (Auto) Lymph % (Auto) [facility] % (Auto) Eos % (Auto) Baso % (Auto) Lymph # (Auto) [facility] # (Auto) Eos # (Auto) Baso # (Auto) Abs Immat Gran (auto) Absolute Neuts (auto) Absolute Nucleated RBC Nucleated RBC % (auto) VBG pH 7.45 H VBG pCO2 46 VBG pO2 65 VBG HCO3 32 H VBG O2 Saturation 90.0 VBG Base Excess 7.7 Anion Gap Estim Creat Clear Calc Estimated GFR POC Glucose Random Glucose Lactic Acid Calcium Magnesium Total Bilirubin Direct Bilirubin AST ALT Alkaline Phosphatase Total Creatine Kinase Total Protein Albumin Urine Color Urine Appearance Urine pH Ur Specific [place] Urine Protein Urine Glucose (UA) Urine Ketones Urine Blood Urine Nitrite Ur Leukocyte Esterase Urine RBC Urine WBC Ur Squamous Epith Cells Urine Bacteria Hyaline Casts Urine Opiates Screen Ur Buprenorphine Scrn Ur Oxycodone Screen Urine Methadone Screen Urine Fentanyl Screen Ur Barbiturates Screen Ur Phencyclidine Scrn Ur Amphetamines Screen U Benzodiazepines Scrn Urine Cocaine Screen U Marijuana (THC) Screen Ethyl Alcohol Influenza Type A (PCR) Influenza Type B (PCR) RSV RNA Qual (PCR) SARS-CoV-2 RNA (RT-PCR) Assessment and Plan (1) Acute hypoxic respiratory failure: Status: Acute (2) UTI (urinary tract infection): Status: Acute (3) Multifocal pneumonia: Status: Acute (4) Sepsis: Status: Acute Plan Pt is a 54-year-old female with a PMH significant for opiate use disorder on methadone and sober x5 months, depression/anxiety, and bipolar disorder who presents to the ED with?for evaluation of SOB and generalized weakness. Pt will be admitted to the hospital for treatment and further evaluation of acute hypoxic respiratory failure in the setting of multifocal atypical pneumonia with sepsis. Acute hypoxic respiratory failure 2/2 sepsis from multifocal pneumonia remains hypoxic Pending cultures Continue ceftriaxone and doxycycline, started 07/17/2024 Wean O2 down as tolerated UTI Follow urine culture on Ceftriaxone Opioid use disorder Continue methadone Mood disorder Continue home meds Full Code DVT Prophylaxis: Lovenox Pt will require a hospitalization overnight for treatment of?acute hypoxic respiratory failure in the setting of multifocal pneumonia with sepsis. Patient will require hospital level of care for administration of IV antibiotics, IV fluids, supplemental oxygen, and close monitoring of respiratory status. Quality Stroke Does the patient have a stroke diagnosis?: No VTE Prior VTE?: No VTE Risk Level:: Medical - moderate - high VTE Device Contraindication: Treatment Not Indicated VTE Drug Contraindication: N/A - Med Ordered
--- NOTE | 2024-07-18 10:36 | MHC.CM.PN ---
PT LIVES WITH HAS A RIDE HOME WHEN DCD GOES TO [facility] METHADONE CLLINIC DC PLAN HOME
[2024-07-18] MEDS: lamoTRIgine 100 MG TABLET PO (10:52)
[2024-07-18] MEDS: QUEtiapine Fumarate 300 MG TABLET PO ×2 (11:16→20:16)
[2024-07-18] MEDS: cloNIDine HCL 0.1 MG TABLET PO ×2 (11:24→20:15)
[2024-07-18] MEDS: Escitalopram Oxalate 20 MG TABLET PO (11:27)
[2024-07-18] MEDS: Acetaminophen 325 MG TABLET 650 MG PO (12:08)
[2024-07-18] MEDS: hydrOXYzine HCL 50 MG TABLET PO ×2 (14:47→18:19)
[2024-07-18] MEDS: Albuterol Sulfate (0.083%) 2.5 MG/3 ML VIAL.NEB INHALE (17:51)
--- NOTE | 2024-07-18 18:23 | PC.NURSE ---
Tyrese gave ok to give patients prn atarax does early.
[2024-07-18] MEDS: cefTRIAXone sodium 1 GM in 0.9 % Sodium Chloride 50 ML IV (20:16)
[2024-07-18] MEDS: Ibuprofen 400 MG TABLET PO (20:34)
[2024-07-18] MEDS: Melatonin 3 MG TABLET 6 MG PO (22:05)
[2024-07-19] VITALS: RESP 20
[2024-07-19 02:18] VITALS: BP 126/77; PULSE 50; RESP 18; TEMP 36.1; O2SAT 94
[2024-07-19 07:19] LABS: Hematocrit 28.2 % (37.0-47.0); Mean Corpuscular HGB Conc 31.9 g/dl (31.0-35.0); Mean Corpuscular Hemoglobin 29.8 pg (27.0-33.0); Mean Corpuscular Volume 93.4 fL (80.0-98.0); Mean Platelet Volume 9.8 fL (9.4-12.3); NRBC Pct Auto 0.5 /100WBC (0.0-0.2); Platelet Count 301 X10*3/uL (160-400); Red Blood Count 3.02 X10*6/uL (4.20-5.50); Red Cell Distribution Width 15.8 % (11.0-16.0); White Blood Count 16.6 X10*3/uL (4.8-10.8)
[2024-07-19 07:52] LABS: Anion Gap 11 (12-20); Blood Urea Nitrogen 17 mg/dL (9-16); Calcium 8.8 mg/dL (8.4-10.2); Carbon Dioxide 29 mmol/L (22-29); Chloride 108 mmol/L (96-108); Creatinine Clr Calc Pharmacy 91.6; Estimated Glomerular Filt Rate > 60; Glucose Random 95 mg/dL (60-115); Sodium 144 mmol/L (135-145)
[2024-07-19 08:00] VITALS: BP 151/82; PULSE 50; RESP 18; TEMP 36.9; O2SAT 94
[2024-07-19] MEDS: 0.9 % Sodium Chloride Flush 3 ML SYRINGE IVFLUSH ×3 (08:23→20:13)
[2024-07-19] MEDS: Escitalopram Oxalate 20 MG TABLET PO (08:23)
[2024-07-19] MEDS: Doxycycline Hyclate 100 MG in 0.9 % Sodium Chloride 250 ML 166.67 MG IV ×2 (08:23→20:12)
[2024-07-19] MEDS: lamoTRIgine 100 MG TABLET PO (08:23)
[2024-07-19 08:27] VITALS: BP 151/82
[2024-07-19] MEDS: cloNIDine HCL 0.1 MG TABLET PO ×2 (08:27→18:29)
[2024-07-19] MEDS: methADONE HCl 20 MG/2 ML ORAL.CONC 115 MG PO (08:27)
[2024-07-19] MEDS: hydrOXYzine HCL 50 MG TABLET PO ×2 (08:27→18:29)
[2024-07-19] MEDS: Ibuprofen 400 MG TABLET PO ×2 (08:27→20:07)
[2024-07-19] MEDS: QUEtiapine Fumarate 300 MG TABLET PO ×2 (08:27→20:07)
--- NOTE | 2024-07-19 09:45 | HO.PM.IMPN ---
Subjective Subjective Date of Service: 07/19/24 Interval History: seen and evaluated this morning Still feeling SOB with dyspnea O2 of 90s on 5L no other overnight events Review of Systems Review of Systems: Yes all other systems are reviewed and are negative Physical Exam Vital Signs: Vital Signs: Last Vital Signs Temp 98.4 F 07/19/24 08:00 Pulse 50 07/19/24 08:00 Resp 18 07/19/24 08:00 BP 151/82 H 07/19/24 08:27 Pulse Ox 94 07/19/24 08:00 O2 Del Method Oxymask 07/19/24 08:00 O2 Flow Rate 5 07/19/24 08:00 Oxygen Flow Rate 4 07/17/24 23:45 BMI result Body Mass Index 21.9 Const: Other: Constitutional : Awake, interactive, not in distress Neck : Normal inspection, Supple Cardiovascular : RRR, no JVP, no lower extremity edema Respiratory : decreased bilateral air entry, basal fine bilaterally crackles, expiratory wheezes Gastrointestinal: soft, lax, Normal bowel sounds, Non tender Skin : Warm, Dry Neurological : Alert & oriented x3, No focal deficit Objective Data Active Medications Acetaminophen (Acetaminophen 325 Mg Tablet) 650 mg PO Q6H PRN PRN Reason: Pain, Mild (Pain Scale 1-3), fever or headache Last Admin: 07/18/24 12:08 Dose: 650 mg Documented By: MELECIO Albuterol Sulfate (Albuterol Sulfate (0.083%) 2.5 Mg/3 Ml Vial.Neb) 2.5 mg INHALE Q4H PRN PRN Reason: Shortness of Breath/Wheezing Last Admin: 07/18/24 17:51 Dose: 2.5 mg Documented By: HUI Benzonatate (Benzonatate 100 Mg Capsule) 100 mg PO TID PRN PRN Reason: Cough Calcium Carbonate (Calcium Carbonate 750 Mg Tab.Chew) 750 mg PO Q4H PRN PRN Reason: Heartburn Clonidine HCl (Clonidine Hcl 0.1 Mg Tablet) 0.1 mg PO TID PRN; Protocol PRN Reason: insomnia Last Admin: 07/19/24 08:27 Dose: 0.1 mg Documented By: BETZY Enoxaparin Sodium (Enoxaparin Sodium 40 Mg/0.4 Ml Syringe) 40 mg SUBCUT Q24H [facility] Last Admin: 07/18/24 22:06 Dose: 40 mg Documented By: VIBHA Escitalopram Oxalate (Escitalopram Oxalate 20 Mg Tablet) 20 mg PO DAILY [facility] Last Admin: 07/19/24 08:23 Dose: 20 mg Documented By: BETZY Guaifenesin (Guaifenesin [place] 600 Mg Tab.Er.12h) 600 mg PO BID [facility] Hydroxyzine HCl (Hydroxyzine Hcl 50 Mg Tablet) 50 mg PO TID PRN PRN Reason: insomnia Last Admin: 07/19/24 08:27 Dose: 50 mg Documented By: BETZY Doxycycline Hyclate 100 mg/ (Sodium Chloride) 250 mls @ 166.67 mls/hr IV Q12H [facility] Last Admin: 07/19/24 08:23 Dose: 166.67 mls/hr Documented By: BETZY Ceftriaxone Sodium 1 gm/ (Sodium Chloride) 50 mls @ 100 mls/hr IV Q24H [facility] Last Infusion: 07/18/24 20:47 Dose: Infused Documented By: VIBHA Ibuprofen (Ibuprofen 400 Mg Tablet) 400 mg PO Q6H PRN PRN Reason: Pain, Moderate(Pain Scale 4-6) Last Admin: 07/19/24 08:27 Dose: 400 mg Documented By: BETZY Lamotrigine (Lamotrigine 100 Mg Tablet) 100 mg PO DAILY [facility] Last Admin: 07/19/24 08:23 Dose: 100 mg Documented By: BETZY Magnesium Hydroxide (Milk Of Magnesia 30 Ml Oral.Susp) 30 ml PO DAILY PRN PRN Reason: Constipation Melatonin (Melatonin 3 Mg Tablet) 6 mg PO BEDTIME PRN PRN Reason: Insomnia Last Admin: 07/18/24 22:05 Dose: 6 mg Documented By: VIBHA Methadone HCl (Methadone Hcl 20 Mg/2 Ml Oral.Conc) 115 mg PO DAILY [facility] Last Admin: 07/19/24 08:27 Dose: 115 mg Documented By: BETZY Co-signed By: RADAH Nicotine (Nicotine 21 Mg Patch.Td24) 21 mg TRANSDERMA DAILY [facility] Last Admin: 07/19/24 08:22 Dose: Not Given Documented By: BETZY Non-Admin Reason: Patient Refused Ondansetron HCl (Ondansetron Hcl 4 Mg/2 Ml Vial) 4 mg IVPUSH Q8H PRN PRN Reason: Nausea and Vomiting Quetiapine Fumarate (Quetiapine Fumarate 300 Mg Tablet) 300 mg PO BID [facility] Last Admin: 07/19/24 08:27 Dose: 300 mg Documented By: BETZY Sodium Chloride (0.9 % Sodium Chloride Flush 3 Ml Syringe) 3 ml IVFLUSH QSHIFT [facility] Last Admin: 07/19/24 08:23 Dose: 3 ml Documented By: BETZY Labs 07/19/24 06:12 07/19/24 06:12 Labs: Laboratory Results - last 24 hr 07/19/24 06:12 MCV 93.4 MCH 29.8 MCHC 31.9 RDW 15.8 Plt Count 301 MPV 9.8 Absolute Nucleated RBC 0.080 H Nucleated RBC % (auto) 0.5 H Anion Gap 11 L Estim Creat Clear Calc 91.6 Estimated GFR > 60 Random Glucose 95 Calcium 8.8 Microbiology Microbiology Results: Microbiology 07/17/24 Unknown Urine Culture - Final Urine clean catch - Clean Catch Midstream Escherichia coli 07/17/24 23:32 Blood Culture - Preliminary Blood - Venous No growth after 24 hours. 07/17/24 23:33 Blood Culture - Preliminary Blood - Venous No growth after 24 hours. Assessment and Plan (1) Sepsis: Status: Acute (2) Acute hypoxic respiratory failure: Status: Acute (3) UTI (urinary tract infection): Status: Acute (4) Multifocal pneumonia: Status: Acute Plan Pt is a 54-year-old female with a PMH significant for opiate use disorder on methadone and sober x5 months, depression/anxiety, and bipolar disorder who presents to the ED with?for evaluation of SOB and generalized weakness. Pt will be admitted to the hospital for treatment and further evaluation of acute hypoxic respiratory failure in the setting of multifocal atypical pneumonia with sepsis. Acute hypoxic respiratory failure 2/2 sepsis from multifocal pneumonia remains hypoxic Pending cultures repeat CXR add Mucinex and incentive spirometry Continue ceftriaxone and doxycycline, started 07/17/2024 Wean O2 down as tolerated UTI urine culture growing E.Coli on Ceftriaxone Opioid use disorder Continue methadone Mood disorder Continue home meds Full Code DVT Prophylaxis: Lovenox Pt will require a hospitalization overnight for treatment of?acute hypoxic respiratory failure in the setting of multifocal pneumonia with sepsis. Patient will require hospital level of care for administration of IV antibiotics, IV fluids, supplemental oxygen, and close monitoring of respiratory status. Quality Stroke Does the patient have a stroke diagnosis?: No VTE Prior VTE?: No VTE Risk Level:: Medical - moderate - high VTE Device Contraindication: Treatment Not Indicated VTE Drug Contraindication: N/A - Med Ordered
[2024-07-19] MEDS: guaiFENesin LA 600 MG TAB.ER.12H PO ×2 (10:28→20:07)
[2024-07-19 15:18] VITALS: BP 106/68; PULSE 61; RESP 20; TEMP 36.5; O2SAT 90
[2024-07-19] MEDS: Benzonatate 100 MG CAPSULE PO (18:30)
[2024-07-19] MEDS: Albuterol Sulfate (0.083%) 2.5 MG/3 ML VIAL.NEB INHALE (18:32)
[2024-07-19 19:55] VITALS: BP 147/83; PULSE 66; RESP 18; TEMP 37.6; O2SAT 92
[2024-07-19] MEDS: cefTRIAXone sodium 1 GM in 0.9 % Sodium Chloride 50 ML IV (20:12)
[2024-07-19] MEDS: Melatonin 3 MG TABLET 6 MG PO (22:25)
[2024-07-19] MEDS: Enoxaparin Sodium 40 MG/0.4 ML SYRINGE SUBCUT (22:28)
[2024-07-20] VITALS: BP 122/68; PULSE 65; RESP 20; TEMP 36.2; O2SAT 94
[2024-07-20] MEDS: Ibuprofen 400 MG TABLET PO (04:55)
[2024-07-20] MEDS: cloNIDine HCL 0.1 MG TABLET PO ×3 (04:57→21:16)
[2024-07-20] MEDS: hydrOXYzine HCL 50 MG TABLET PO ×3 (05:29→21:16)
[2024-07-20 07:58] LABS: Hematocrit 27.9 % (37.0-47.0); Hemoglobin 8.8 g/dl (12.0-16.0); Mean Corpuscular HGB Conc 31.5 g/dl (31.0-35.0); Mean Corpuscular Hemoglobin 29.3 pg (27.0-33.0); Mean Platelet Volume 9.9 fL (9.4-12.3); NRBC Pct Auto 0.4 /100WBC (0.0-0.2); Platelet Count 317 X10*3/uL (160-400); Red Cell Distribution Width 15.9 % (11.0-16.0)
[2024-07-20 08:07] VITALS: BP 146/70; PULSE 53; RESP 20; TEMP 36.1; O2SAT 94
[2024-07-20 08:08] LABS: Anion Gap 13 (12-20); Blood Urea Nitrogen 13 mg/dL (9-16); Calcium 8.5 mg/dL (8.4-10.2); Carbon Dioxide 27 mmol/L (22-29); Chloride 107 mmol/L (96-108); Creatinine Clr Calc Pharmacy 100.4; Estimated Glomerular Filt Rate > 60; Glucose Random 76 mg/dL (60-115); Potassium 3.8 mmol/L (3.3-5.1); Sodium 143 mmol/L (135-145)
[2024-07-20] MEDS: 0.9 % Sodium Chloride Flush 3 ML SYRINGE IVFLUSH ×2 (09:04→15:54)
[2024-07-20] MEDS: Doxycycline Hyclate 100 MG in 0.9 % Sodium Chloride 250 ML 166.67 MG IV (09:07)
[2024-07-20] MEDS: QUEtiapine Fumarate 300 MG TABLET PO ×2 (09:10→19:45)
[2024-07-20] MEDS: methADONE HCl 20 MG/2 ML ORAL.CONC 115 MG PO (09:11)
[2024-07-20] MEDS: Escitalopram Oxalate 20 MG TABLET PO (09:11)
[2024-07-20] MEDS: guaiFENesin LA 600 MG TAB.ER.12H PO ×2 (09:11→19:45)
[2024-07-20] MEDS: lamoTRIgine 100 MG TABLET PO (09:11)
[2024-07-20] MEDS: Acetaminophen 325 MG TABLET 650 MG PO (09:12)
[2024-07-20] MEDS: Benzonatate 100 MG CAPSULE PO (09:12)
[2024-07-20 10:23] VITALS: O2SAT 90
--- NOTE | 2024-07-20 12:23 | P.PNIM_ITS ---
Subjective Subjective Date of Service: 07/20/24 Interval History: seen and evaluated this morning Still feeling SOB with dyspnea but overall little better O2 of 90s on 3L no other overnight events Review of Systems Review of Systems: Yes all other systems are reviewed and are negative Physical Exam 2 Vital Signs: Vital Signs: Last Vital Signs Temp 97 F 07/20/24 08:07 Pulse 53 07/20/24 08:07 Resp 20 07/20/24 08:07 BP 146/70 H 07/20/24 08:07 Pulse Ox 90 L 07/20/24 10:23 O2 Del Method Oxymask 07/20/24 10:23 O2 Flow Rate 2.5 07/20/24 10:23 Oxygen Flow Rate 4 07/17/24 23:45 BMI result Body Mass Index 21.9 Const: Other: Constitutional : Awake, interactive, not in distress Neck : Normal inspection, Supple Cardiovascular : RRR, no JVP, no lower extremity edema Respiratory : decreased bilateral air entry, basal fine bilaterally crackles, expiratory wheezes Gastrointestinal: soft, lax, Normal bowel sounds, Non tender Skin : Warm, Dry Neurological : Alert & oriented x3, No focal deficit Objective Data Active Medications Acetaminophen (Acetaminophen 325 Mg Tablet) 650 mg PO Q6H PRN PRN Reason: Pain, Mild (Pain Scale 1-3), fever or headache Last Admin: 07/20/24 09:12 Dose: 650 mg Documented By: CHICO Albuterol Sulfate (Albuterol Sulfate (0.083%) 2.5 Mg/3 Ml Vial.Neb) 2.5 mg INHALE Q4H PRN PRN Reason: Shortness of Breath/Wheezing Last Admin: 07/19/24 18:32 Dose: 2.5 mg Documented By: BETZY Benzonatate (Benzonatate 100 Mg Capsule) 100 mg PO TID PRN PRN Reason: Cough Last Admin: 07/20/24 09:12 Dose: 100 mg Documented By: CHICO Calcium Carbonate (Calcium Carbonate 750 Mg Tab.Chew) 750 mg PO Q4H PRN PRN Reason: Heartburn Clonidine HCl (Clonidine Hcl 0.1 Mg Tablet) 0.1 mg PO TID PRN; Protocol PRN Reason: insomnia Last Admin: 07/20/24 04:57 Dose: 0.1 mg Documented By: KRYSTLE Enoxaparin Sodium (Enoxaparin Sodium 40 Mg/0.4 Ml Syringe) 40 mg SUBCUT Q24H ON LICENSE OF [facility] Last Admin: 07/19/24 22:28 Dose: 40 mg Documented By: VIBHA Escitalopram Oxalate (Escitalopram Oxalate 20 Mg Tablet) 20 mg PO DAILY ON LICENSE OF [facility] Last Admin: 07/20/24 09:11 Dose: 20 mg Documented By: CHICO Guaifenesin (Guaifenesin La 600 Mg Tab.Er.12h) 600 mg PO BID ON LICENSE OF [facility] Last Admin: 07/20/24 09:11 Dose: 600 mg Documented By: CHICO Hydroxyzine HCl (Hydroxyzine Hcl 50 Mg Tablet) 50 mg PO TID PRN PRN Reason: insomnia Last Admin: 07/20/24 05:29 Dose: 50 mg Documented By: KRYSTLE Doxycycline Hyclate 100 mg/ (Sodium Chloride) 250 mls @ 166.67 mls/hr IV Q12H ON LICENSE OF [facility] Last Infusion: 07/20/24 11:11 Dose: Infused Documented By: CHICO Ceftriaxone Sodium 1 gm/ (Sodium Chloride) 50 mls @ 100 mls/hr IV Q24H ON LICENSE OF [facility] Last Infusion: 07/19/24 20:52 Dose: Infused Documented By: VIBHA Ibuprofen (Ibuprofen 400 Mg Tablet) 400 mg PO Q6H PRN PRN Reason: Pain, Moderate(Pain Scale 4-6) Last Admin: 07/20/24 04:55 Dose: 400 mg Documented By: KRYSTLE Lamotrigine (Lamotrigine 100 Mg Tablet) 100 mg PO DAILY ON LICENSE OF [facility] Last Admin: 07/20/24 09:11 Dose: 100 mg Documented By: CHICO Magnesium Hydroxide (Milk Of Magnesia 30 Ml Oral.Susp) 30 ml PO DAILY PRN PRN Reason: Constipation Melatonin (Melatonin 3 Mg Tablet) 6 mg PO BEDTIME PRN PRN Reason: Insomnia Last Admin: 07/19/24 22:25 Dose: 6 mg Documented By: VIBHA Methadone HCl (Methadone Hcl 20 Mg/2 Ml Oral.Conc) 115 mg PO DAILY ON LICENSE OF [facility] Last Admin: 07/20/24 09:11 Dose: 115 mg Documented By: CHICO Co-signed By: BETZY Nicotine (Nicotine 21 Mg Patch.Td24) 21 mg TRANSDERMA DAILY ON LICENSE OF [facility] Last Admin: 07/20/24 09:16 Dose: Not Given Documented By: CHICO Non-Admin Reason: Patient Refused Ondansetron HCl (Ondansetron Hcl 4 Mg/2 Ml Vial) 4 mg IVPUSH Q8H PRN PRN Reason: Nausea and Vomiting Quetiapine Fumarate (Quetiapine Fumarate 300 Mg Tablet) 300 mg PO BID ON LICENSE OF [facility] Last Admin: 07/20/24 09:10 Dose: 300 mg Documented By: CHICO Sodium Chloride (0.9 % Sodium Chloride Flush 3 Ml Syringe) 3 ml IVFLUSH QSHIFT ON LICENSE OF [facility] Last Admin: 07/20/24 09:04 Dose: 3 ml Documented By: CHICO Labs 07/20/24 05:54 07/20/24 05:55 Labs: Laboratory Results - last 24 hr 07/20/24 07/20/24 05:54 05:55 MCV 93.0 MCH 29.3 MCHC 31.5 RDW 15.9 Plt Count 317 MPV 9.9 Absolute Nucleated RBC 0.050 H Nucleated RBC % (auto) 0.4 H Anion Gap 13 Estim Creat Clear Calc 100.4 Estimated GFR > 60 Random Glucose 76 Calcium 8.5 Microbiology Microbiology Results: Microbiology 07/17/24 23:32 Blood Culture - Preliminary Blood - Venous No growth after 48 hours. 07/17/24 23:33 Blood Culture - Preliminary Blood - Venous No growth after 48 hours. 07/17/24 Unknown Urine Culture - Final Urine clean catch - Clean Catch Midstream Escherichia coli Assessment and Plan (1) Sepsis: Status: Acute (2) Acute hypoxic respiratory failure: Status: Acute (3) UTI (urinary tract infection): Status: Acute (4) Multifocal pneumonia: Status: Acute Plan Pt is a 54-year-old female with a PMH significant for opiate use disorder on methadone and sober x5 months, depression/anxiety, and bipolar disorder who presents to the ED with?for evaluation of SOB and generalized weakness. Pt will be admitted to the hospital for treatment and further evaluation of acute hypoxic respiratory failure in the setting of multifocal atypical pneumonia with sepsis. Acute hypoxic respiratory failure 2/2 sepsis from multifocal pneumonia remains hypoxic requiring O2 supplement negatvie cultures repeat CXR showing no significant improvement in RT sided infiltrates Continue Mucinex and incentive spirometry Continue ceftriaxone and change doxycycline to Azithromycin, started 07/17/2024 Wean O2 down as tolerated UTI urine culture growing E.Coli on Ceftriaxone Opioid use disorder Continue methadone Mood disorder Continue home meds Full Code DVT Prophylaxis: Lovenox Pt will require a hospitalization overnight for treatment of?acute hypoxic respiratory failure in the setting of multifocal pneumonia with sepsis. Patient will require hospital level of care for administration of IV antibiotics, IV fluids, supplemental oxygen, and close monitoring of respiratory status. Quality Stroke Does the patient have a stroke diagnosis?: No VTE Prior VTE?: No VTE Risk Level:: Medical - moderate - high VTE Device Contraindication: Treatment Not Indicated VTE Drug Contraindication: N/A - Med Ordered
[2024-07-20] MEDS: Azithromycin 500 MG in 0.9 % Sodium Chloride 250 ML 125 MG IV (13:25)
[2024-07-20 15:50] VITALS: BP 133/66; PULSE 60; RESP 20; TEMP 36.6; O2SAT 91
[2024-07-20] MEDS: Melatonin 3 MG TABLET 6 MG PO (19:45)
[2024-07-20 21:16] VITALS: BP 133/66
[2024-07-20] MEDS: cefTRIAXone sodium 1 GM in 0.9 % Sodium Chloride 50 ML IV (21:16)
[2024-07-20] MEDS: Enoxaparin Sodium 40 MG/0.4 ML SYRINGE SUBCUT (21:17)
[2024-07-20 23:28] VITALS: BP 117/63; PULSE 63; RESP 20; TEMP 36.6; O2SAT 90
[2024-07-21] VITALS (7 sets, daily range): BP systolic 97–128; BP diastolic 51–69; PULSE 51–64; RESP 18–20; TEMP 36–37.4; O2SAT 90–96
[2024-07-21] MEDS: 0.9 % Sodium Chloride Flush 3 ML SYRINGE IVFLUSH ×4 (00:28→20:18)
[2024-07-21 06:34] LABS: Anion Gap 13 (12-20); Blood Urea Nitrogen 12 mg/dL (9-16); Carbon Dioxide 27 mmol/L (22-29); Chloride 105 mmol/L (96-108); Creatinine Clr Calc Pharmacy 95.8; Estimated Glomerular Filt Rate > 60; Glucose Random 79 mg/dL (60-115); Potassium 3.8 mmol/L (3.3-5.1); Sodium 141 mmol/L (135-145)
[2024-07-21 06:38] LABS: B Type Natriuretic Peptide 293 pg/mL (<100)
[2024-07-21] MEDS: lamoTRIgine 100 MG TABLET PO (08:20)
[2024-07-21] MEDS: Furosemide 20 MG/2 ML VIAL IVPUSH ×2 (08:20→18:04)
[2024-07-21] MEDS: methADONE HCl 20 MG/2 ML ORAL.CONC 115 MG PO (08:21)
[2024-07-21] MEDS: guaiFENesin LA 600 MG TAB.ER.12H PO ×2 (08:21→20:14)
[2024-07-21] MEDS: QUEtiapine Fumarate 300 MG TABLET PO ×2 (08:21→20:14)
[2024-07-21] MEDS: Benzonatate 100 MG CAPSULE PO (08:21)
[2024-07-21] MEDS: cloNIDine HCL 0.1 MG TABLET PO (09:34)
[2024-07-21] MEDS: Escitalopram Oxalate 20 MG TABLET PO (09:34)
[2024-07-21] MEDS: hydrOXYzine HCL 50 MG TABLET PO ×2 (09:35→18:07)
--- NOTE | 2024-07-21 10:29 | HO.PM.IMPN ---
Subjective Subjective Date of Service: 07/21/24 Interval History: seen and evaluated this morning Still feeling SOB with dyspnea overall little better O2 of 90s on 3-4L BNP mildly elevated no other overnight events Review of Systems Review of Systems: Yes all other systems are reviewed and are negative Physical Exam Vital Signs: Vital Signs: Last Vital Signs Temp 97.2 F 07/21/24 07:48 Pulse 57 07/21/24 07:48 Resp 18 07/21/24 07:48 BP 128/69 07/21/24 09:34 Pulse Ox 93 07/21/24 07:48 O2 Del Method Nasal Cannula 07/21/24 07:48 O2 Flow Rate 3.0 07/21/24 07:48 Oxygen Flow Rate 4 07/17/24 23:45 BMI result Body Mass Index 21.9 Const: Other: Constitutional : Awake, interactive, not in distress Neck : Normal inspection, Supple Cardiovascular : RRR, no JVP, no lower extremity edema Respiratory : decreased bilateral air entry, basal fine bilaterally crackles, expiratory wheezes Gastrointestinal: soft, lax, Normal bowel sounds, Non tender Skin : Warm, Dry Neurological : Alert & oriented x3, No focal deficit Objective Data Active Medications Acetaminophen (Acetaminophen 325 Mg Tablet) 650 mg PO Q6H PRN PRN Reason: Pain, Mild (Pain Scale 1-3), fever or headache Last Admin: 07/20/24 09:12 Dose: 650 mg Documented By: CHICO Albuterol Sulfate (Albuterol Sulfate (0.083%) 2.5 Mg/3 Ml Vial.Neb) 2.5 mg INHALE Q4H PRN PRN Reason: Shortness of Breath/Wheezing Last Admin: 07/19/24 18:32 Dose: 2.5 mg Documented By: BETZY Benzonatate (Benzonatate 100 Mg Capsule) 100 mg PO TID PRN PRN Reason: Cough Last Admin: 07/21/24 08:21 Dose: 100 mg Documented By: CHICO Calcium Carbonate (Calcium Carbonate 750 Mg Tab.Chew) 750 mg PO Q4H PRN PRN Reason: Heartburn Clonidine HCl (Clonidine Hcl 0.1 Mg Tablet) 0.1 mg PO TID PRN; Protocol PRN Reason: Anxiety Last Admin: 07/21/24 09:34 Dose: 0.1 mg Documented By: CHICO Enoxaparin Sodium (Enoxaparin Sodium 40 Mg/0.4 Ml Syringe) 40 mg SUBCUT Q24H [facility] Last Admin: 07/20/24 21:17 Dose: 40 mg Documented By: MAURIZIO Escitalopram Oxalate (Escitalopram Oxalate 20 Mg Tablet) 20 mg PO DAILY [facility] Last Admin: 07/21/24 09:34 Dose: 20 mg Documented By: CHICO Guaifenesin (Guaifenesin La 600 Mg Tab.Er.12h) 600 mg PO BID [facility] Last Admin: 07/21/24 08:21 Dose: 600 mg Documented By: CHICO Hydroxyzine HCl (Hydroxyzine Hcl 50 Mg Tablet) 50 mg PO TID PRN PRN Reason: Anxiety Last Admin: 07/21/24 09:35 Dose: 50 mg Documented By: CHICO Ceftriaxone Sodium 1 gm/ (Sodium Chloride) 50 mls @ 100 mls/hr IV Q24H [facility] Last Infusion: 07/20/24 21:50 Dose: Infused Documented By: MAURIZIO Azithromycin 500 mg/ Sodium (Chloride) 250 mls @ 125 mls/hr IV Q24H [facility] Last Infusion: 07/20/24 15:43 Dose: Infused Documented By: CHICO Ibuprofen (Ibuprofen 400 Mg Tablet) 400 mg PO Q6H PRN PRN Reason: Pain, Moderate(Pain Scale 4-6) Last Admin: 07/20/24 04:55 Dose: 400 mg Documented By: KRYSTLE Lamotrigine (Lamotrigine 100 Mg Tablet) 100 mg PO DAILY [facility] Last Admin: 07/21/24 08:20 Dose: 100 mg Documented By: CHICO Magnesium Hydroxide (Milk Of Magnesia 30 Ml Oral.Susp) 30 ml PO DAILY PRN PRN Reason: Constipation Melatonin (Melatonin 3 Mg Tablet) 6 mg PO BEDTIME PRN PRN Reason: Insomnia Last Admin: 07/20/24 19:45 Dose: 6 mg Documented By: MAURIZIO Methadone HCl (Methadone Hcl 20 Mg/2 Ml Oral.Conc) 115 mg PO DAILY [facility] Last Admin: 07/21/24 08:21 Dose: 115 mg Documented By: CHICO Co-signed By: ZAIDA Nicotine (Nicotine 21 Mg Patch.Td24) 21 mg TRANSDERMA DAILY [facility] Last Admin: 07/21/24 09:24 Dose: Not Given Documented By: CHICO Non-Admin Reason: Patient Refused Ondansetron HCl (Ondansetron Hcl 4 Mg/2 Ml Vial) 4 mg IVPUSH Q8H PRN PRN Reason: Nausea and Vomiting Quetiapine Fumarate (Quetiapine Fumarate 300 Mg Tablet) 300 mg PO BID [facility] Last Admin: 07/21/24 08:21 Dose: 300 mg Documented By: CHICO Sodium Chloride (0.9 % Sodium Chloride Flush 3 Ml Syringe) 3 ml IVFLUSH QSHIFT [facility] Last Admin: 07/21/24 08:20 Dose: 3 ml Documented By: CHICO Labs 07/20/24 05:54 07/21/24 05:18 Labs: Laboratory Results - last 24 hr 07/21/24 05:18 Anion Gap 13 Estim Creat Clear Calc 95.8 Estimated GFR > 60 Random Glucose 79 Calcium 9.0 B-Natriuretic Peptide 293 H Assessment and Plan (1) Sepsis: Status: Acute (2) Acute hypoxic respiratory failure: Status: Acute (3) UTI (urinary tract infection): Status: Acute (4) Multifocal pneumonia: Status: Acute (5) Fluid overload: Status: Acute Plan Pt is a 54-year-old female with a PMH significant for opiate use disorder on methadone and sober x5 months, depression/anxiety, and bipolar disorder who presents to the ED with?for evaluation of SOB and generalized weakness. Pt will be admitted to the hospital for treatment and further evaluation of acute hypoxic respiratory failure in the setting of multifocal atypical pneumonia with sepsis. Acute hypoxic respiratory failure 2/2 sepsis from multifocal pneumonia and fluid overload remains hypoxic requiring O2 supplement negatvie cultures BNP elevated >200 repeat CXR showing no significant improvement in RT sided infiltrates Continue Mucinex and incentive spirometry Start Lasix Continue ceftriaxone and change doxycycline to Azithromycin, started 07/17/2024 Wean O2 down as tolerated UTI urine culture growing E.Coli on Ceftriaxone Opioid use disorder Continue methadone Mood disorder Continue home meds Full Code DVT Prophylaxis: Lovenox Pt will require a hospitalization overnight for treatment of?acute hypoxic respiratory failure in the setting of multifocal pneumonia with sepsis. Patient will require hospital level of care for administration of IV antibiotics, IV fluids, supplemental oxygen, and close monitoring of respiratory status. Quality Stroke Does the patient have a stroke diagnosis?: No VTE Prior VTE?: No VTE Risk Level:: Medical - moderate - high VTE Device Contraindication: Treatment Not Indicated VTE Drug Contraindication: N/A - Med Ordered
[2024-07-21] MEDS: Azithromycin 500 MG in 0.9 % Sodium Chloride 250 ML 125 MG IV (12:55)
[2024-07-21] MEDS: Ibuprofen 400 MG TABLET PO (15:33)
[2024-07-21] MEDS: cefTRIAXone sodium 1 GM in 0.9 % Sodium Chloride 50 ML IV (20:15)
[2024-07-21] MEDS: Enoxaparin Sodium 40 MG/0.4 ML SYRINGE SUBCUT (21:11)
[2024-07-22] VITALS (7 sets, daily range): BP systolic 104–138; BP diastolic 53–74; PULSE 50–71; RESP 16–20; TEMP 36.3–37.2; O2SAT 92–98
[2024-07-22 05:47] LABS: Anion Gap 14 (12-20); Blood Urea Nitrogen 19 mg/dL (9-16); Carbon Dioxide 30 mmol/L (22-29); Chloride 104 mmol/L (96-108); Creatinine Clr Calc Pharmacy 97.3; Estimated Glomerular Filt Rate > 60; Glucose Random 97 mg/dL (60-115); Iron 30 mcg/dL (30-160); Percent Iron Saturation 16 % (15-50); Potassium 3.8 mmol/L (3.3-5.1); Sodium 144 mmol/L (135-145); Total Iron Binding Capacity 185 mcg/dL (228-428); Unsaturated Iron Binding 155 ug/dL
[2024-07-22 06:21] LABS: Hematocrit 28.2 % (37.0-47.0); Hemoglobin 9.1 g/dl (12.0-16.0); Mean Corpuscular HGB Conc 32.3 g/dl (31.0-35.0); Mean Corpuscular Hemoglobin 29.3 pg (27.0-33.0); Mean Corpuscular Volume 90.7 fL (80.0-98.0); Mean Platelet Volume 9.7 fL (9.4-12.3); NRBC Pct Auto 0.2 /100WBC (0.0-0.2); Platelet Count 361 X10*3/uL (160-400); Red Blood Count 3.11 X10*6/uL (4.20-5.50); Red Cell Distribution Width 15.7 % (11.0-16.0); White Blood Count 12.1 X10*3/uL (4.8-10.8)
--- NOTE | 2024-07-22 07:00 | CA_ITS ---
Transthoracic Echocardiogram Patient (Last, First, Middle): Ximena Agarwal, Gender: Female Date of : 1970 Age: 54 Procedure Date: 07/22/2024 Procedure Type: Transthoracic Echocardiogram Location: S3E Height: 170.18 cm Weight: 63.5 kg BSA: 1.74 m2 Heart Rate: 44 bpm BP: 138 / 58 mmHg Manager Branch: Referring MD: Nu Nunez MD [employer] Tender: Dheeraj Romano MD Symptoms: Hypoxia, Elevated BNP Study Quality: Adequate ECG Rhythm: Sinus Bradycardia Conclusions: - 1. Normal LV ejection fraction of 60 65% 2. Mildly dilated left atrium 3. Normal cardiac valvular Dopplers 4. Normal RV systolic pressure 5. Trivial pericardial effusion Findings Left Ventricle Normal left ventricular size, thickness, and systolic function. The visually estimated ejection fraction is between 60-65%. Spectral Doppler is indicative of a normal filling pattern. Right Ventricle Normal right ventricular cavity size and systolic function. Atria The left atrium is mildly dilated. There is no evidence of interatrial shunt. The right atrium is normal in size. Aortic Valve Normal aortic valve structure and function. There is no aortic valve stenosis. There is no aortic valve regurgitation. Mitral Valve Normal mitral valve structure and function. There is trace mitral valve regurgitation. There is no mitral valve stenosis. Pulmonic Valve The pulmonic valve is likely normal. Tricuspid Valve Normal tricuspid valve structure. There is mild tricuspid valve regurgitation. The right ventricular systolic pressure is normal. The right ventricular systolic pressure is 24 mmHg. Normal right atrial pressure. There is no evidence of pulmonary hypertension. Great Vessels All visible segments of the aorta are normal in size. The pulmonary artery was not well visualized. There is no dilatation of the ascending aorta measuring 2.70 cm. Venous The inferior vena cava is normal in size and collapses greater than 50% with inspiration. Pericardium/Pleural There is a trivial circumferential pericardial effusion. Prior Study Comparison No prior study available for comparison. Measurements 2D Linear Measurements IVSd: 0.92 0.6-0.9/0.6-1.0 cm LVIDd: 5.26 3.9-5.3/4.2-5.9 cm LVIDd Index: 3.02 2.4-3.2/2.2-3.1 cm/m2 LVIDs: 3.66 2.0-3.6 cm LVPWd: 1.06 0.7-1.1 cm LA Diam: 3.40 2.7-3.8/3.0-4.0 cm LAIDs Index: 1.95 1.5-2.3 cm/m2 LV Mass: 243.17 67-162/88-224 g LV Mass Index: 139.75 43-95/49-115 g/m2 LVOT Diam: 2.00 3.0+(-)1.3 cm 2D Systolic Function EF 4C: 69.70 >55% EF 2C: 62.70 >55% Mitral Valve MV Pk E: 0.92 MV PK A: 0.72 MV Decel Time: 194.00 E/A: 1.30 E'Lateral: 14.30 E'Medial: 11.90 E/E' Med: 7.70 E/E' Lat: 6.40 PHT: 57.00 MVA PHT: 3.86 Decel [place]: 4.73 Aortic Valve AoV Pk Ramo: 1.98 AoV Mn Ramo: 1.34 AoV VTI: 0.42 AoV Pk Grad: 16.00 Aov Mn Grad: 8.00 JANE Cont.VTI: 2.26 LVOT LVOT Pk Ramo: 1.43 LVOT Mn Ramo: 0.94 LVOT VTI: 0.30 LVOT Pk Grad: 8.00 LVOT Mn Grad: 4.00 LVOT Diam: 2.00 LVOT Area: 3.14 Diastolic Function MV Pk E: 0.92 MV Pk A: 0.72 E/A: 1.30 E'Medial: 11.90 E/E' Med: 7.70 E' Laterial: 14.30 E/E' Lat: 6.40 Right Ventricle TAPSE (mm): 30.00 TVS' Ramo: 11.60 Tricuspid Valve TR Pk Ramo: 2.27 TR Pk Grad: 21.00 RA Press: 3.00 RVSP: 24.00 Great Vessels Aorta Sinus of Valsalva: 2.90 2.0-3.5 cm Ao Asc: 2.70 2.1-3.4 cm Pulmonary Valve PV Pk Ramo: 1.14 Peak PV Grad: 5.00 Updated in Other Vendor System with Status of Final Dheeraj Romano MD electronically signed on 07/22/2024 11:35:13 AM with status of Final
[2024-07-22] MEDS: lamoTRIgine 100 MG TABLET PO (07:51)
[2024-07-22] MEDS: Furosemide 20 MG/2 ML VIAL 40 MG IVPUSH (07:51)
[2024-07-22] MEDS: Escitalopram Oxalate 20 MG TABLET PO (07:51)
[2024-07-22] MEDS: QUEtiapine Fumarate 300 MG TABLET PO ×2 (07:51→20:40)
[2024-07-22] MEDS: guaiFENesin LA 600 MG TAB.ER.12H PO ×2 (07:51→20:40)
[2024-07-22] MEDS: 0.9 % Sodium Chloride Flush 3 ML SYRINGE IVFLUSH ×3 (07:52→21:17)
[2024-07-22] MEDS: cloNIDine HCL 0.1 MG TABLET PO ×2 (08:00→16:04)
[2024-07-22] MEDS: hydrOXYzine HCL 50 MG TABLET PO ×2 (08:00→16:04)
[2024-07-22] MEDS: methADONE HCl 20 MG/2 ML ORAL.CONC 115 MG PO (08:01)
[2024-07-22] MEDS: methylPREDNISolone Sod Succ 40 MG/ML VIAL IVPUSH (09:26)
--- NOTE | 2024-07-22 10:33 | P.PNIM_ITS ---
Subjective Subjective Date of Service: 07/22/24 Interval History: seen and evaluated this morning Still feeling SOB with dyspnea, mildly better O2 of 90s on 3-4L BNP mildly elevated CT showing significant groundglass haziness on right side and AMARI with effusions and atelactasis no other overnight events Review of Systems Review of Systems: Yes all other systems are reviewed and are negative Physical Exam 2 Vital Signs: Vital Signs: Last Vital Signs Temp 97.4 F 07/22/24 07:39 Pulse 50 07/22/24 07:39 Resp 18 07/22/24 07:39 BP 138/58 L 07/22/24 07:39 Pulse Ox 94 07/22/24 07:39 O2 Del Method Nasal Cannula 07/22/24 07:39 O2 Flow Rate 4.0 07/22/24 07:39 Oxygen Flow Rate 4 07/17/24 23:45 BMI result Body Mass Index 21.9 Const: Other: Constitutional : Awake, interactive, not in distress Neck : Normal inspection, Supple Cardiovascular : RRR, no JVP, no lower extremity edema Respiratory : decreased bilateral air entry, basal fine bilaterally crackles, no wheezes Gastrointestinal: soft, lax, Normal bowel sounds, Non tender Skin : Warm, Dry Neurological : Alert & oriented x3, No focal deficit Objective Data Active Medications Acetaminophen (Acetaminophen 325 Mg Tablet) 650 mg PO Q6H PRN PRN Reason: Pain, Mild (Pain Scale 1-3), fever or headache Last Admin: 07/20/24 09:12 Dose: 650 mg Documented By: CHICO Albuterol Sulfate (Albuterol Sulfate (0.083%) 2.5 Mg/3 Ml Vial.Neb) 2.5 mg INHALE Q4H PRN PRN Reason: Shortness of Breath/Wheezing Last Admin: 07/19/24 18:32 Dose: 2.5 mg Documented By: BETZY Benzonatate (Benzonatate 100 Mg Capsule) 100 mg PO TID PRN PRN Reason: Cough Last Admin: 07/21/24 08:21 Dose: 100 mg Documented By: CHICO Calcium Carbonate (Calcium Carbonate 750 Mg Tab.Chew) 750 mg PO Q4H PRN PRN Reason: Heartburn Clonidine HCl (Clonidine Hcl 0.1 Mg Tablet) 0.1 mg PO TID PRN; Protocol PRN Reason: Anxiety Last Admin: 07/22/24 08:00 Dose: 0.1 mg Documented By: JUNIE Enoxaparin Sodium (Enoxaparin Sodium 40 Mg/0.4 Ml Syringe) 40 mg SUBCUT Q24H [facility] Last Admin: 07/21/24 21:11 Dose: 40 mg Documented By: REHAN Escitalopram Oxalate (Escitalopram Oxalate 20 Mg Tablet) 20 mg PO DAILY [facility] Last Admin: 07/22/24 07:51 Dose: 20 mg Documented By: JUNIE Furosemide (Furosemide 20 Mg/2 Ml Vial) 40 mg IVPUSH DAILY [facility]; Protocol Last Admin: 07/22/24 07:51 Dose: 40 mg Documented By: JUNIE Guaifenesin (Guaifenesin La 600 Mg Tab.Er.12h) 600 mg PO BID [facility] Last Admin: 07/22/24 07:51 Dose: 600 mg Documented By: JUNIE Hydroxyzine HCl (Hydroxyzine Hcl 50 Mg Tablet) 50 mg PO TID PRN PRN Reason: Anxiety Last Admin: 07/22/24 08:00 Dose: 50 mg Documented By: JUNIE Ceftriaxone Sodium 1 gm/ (Sodium Chloride) 50 mls @ 100 mls/hr IV Q24H [facility] Last Infusion: 07/21/24 21:14 Dose: Infused Documented By: REHAN Azithromycin 500 mg/ Sodium (Chloride) 250 mls @ 125 mls/hr IV Q24H [facility] Last Infusion: 07/21/24 14:55 Dose: Infused Documented By: CHICO Ibuprofen (Ibuprofen 400 Mg Tablet) 400 mg PO Q6H PRN PRN Reason: Pain, Moderate(Pain Scale 4-6) Last Admin: 07/21/24 15:33 Dose: 400 mg Documented By: CHICO Lamotrigine (Lamotrigine 100 Mg Tablet) 100 mg PO DAILY [facility] Last Admin: 07/22/24 07:51 Dose: 100 mg Documented By: JUNIE Magnesium Hydroxide (Milk Of Magnesia 30 Ml Oral.Susp) 30 ml PO DAILY PRN PRN Reason: Constipation Melatonin (Melatonin 3 Mg Tablet) 6 mg PO BEDTIME PRN PRN Reason: Insomnia Last Admin: 07/20/24 19:45 Dose: 6 mg Documented By: MAURIZIO Methadone HCl (Methadone Hcl 20 Mg/2 Ml Oral.Conc) 115 mg PO DAILY [facility] Last Admin: 07/22/24 08:01 Dose: 115 mg Documented By: JUNIE Co-signed By: DAHIANA Methylprednisolone Sodium Succinate (Methylprednisolone Sod Succ 40 Mg/Ml Vial) 40 mg IVPUSH Q24H [facility] Last Admin: 07/22/24 09:26 Dose: 40 mg Documented By: JUNIE Nicotine (Nicotine 21 Mg Patch.Td24) 21 mg TRANSDERMA DAILY [facility] Last Admin: 07/22/24 07:56 Dose: Not Given Documented By: JUNIE Non-Admin Reason: Patient Refused Ondansetron HCl (Ondansetron Hcl 4 Mg/2 Ml Vial) 4 mg IVPUSH Q8H PRN PRN Reason: Nausea and Vomiting Quetiapine Fumarate (Quetiapine Fumarate 300 Mg Tablet) 300 mg PO BID [facility] Last Admin: 07/22/24 07:51 Dose: 300 mg Documented By: JUNIE Sodium Chloride (0.9 % Sodium Chloride Flush 3 Ml Syringe) 3 ml IVFLUSH QSHIFT [facility] Last Admin: 07/22/24 07:52 Dose: 3 ml Documented By: JUNIE Labs 07/22/24 05:06 07/22/24 05:06 Labs: Laboratory Results - last 24 hr 07/22/24 07/22/24 05:06 08:48 MCV 90.7 MCH 29.3 MCHC 32.3 RDW 15.7 Plt Count 361 MPV 9.7 Absolute Nucleated RBC 0.020 H Nucleated RBC % (auto) 0.2 Hold Purple Top SEE NOTE Anion Gap 14 Estim Creat Clear Calc 97.3 Estimated GFR > 60 Random Glucose 97 Calcium 9.0 Iron 30 TIBC 185 L % Saturation 16 Unsat Iron Binding 155 Assessment and Plan (1) Fluid overload: Status: Acute (2) Sepsis: Status: Acute (3) Acute hypoxic respiratory failure: Status: Acute (4) UTI (urinary tract infection): Status: Acute (5) Multifocal pneumonia: Status: Acute Plan Pt is a 54-year-old female with a PMH significant for opiate use disorder on methadone and sober x5 months, depression/anxiety, and bipolar disorder who presents to the ED with?for evaluation of SOB and generalized weakness. Pt will be admitted to the hospital for treatment and further evaluation of acute hypoxic respiratory failure in the setting of multifocal atypical pneumonia with sepsis. Acute hypoxic respiratory failure 2/2 sepsis from multifocal pneumonia and fluid overload remains hypoxic requiring O2 supplement negatvie cultures BNP elevated >200 repeat CXR showing no significant improvement in RT sided infiltrates CT showing significant groundglass haziness on right side and AMARI with effusions and atelactasis Continue Mucinex and incentive spirometry As needed IV Lasix Start Methylprednisolone 40 mg Q24 Continue ceftriaxone and change doxycycline to Azithromycin, started 07/17/2024 Pulm consult, send work up for vasculitis and pneumonitis , HIV .. pending Wean O2 down as tolerated UTI urine culture grew E.Coli on Ceftriaxone Opioid use disorder Continue methadone Mood disorder Continue home meds Full Code DVT Prophylaxis: Lovenox Pt will require a hospitalization overnight for treatment of?acute hypoxic respiratory failure in the setting of multifocal pneumonia with sepsis. Patient will require hospital level of care for administration of IV antibiotics, supplemental oxygen, and close monitoring of respiratory status pending specialist evaluation Quality Stroke Does the patient have a stroke diagnosis?: No VTE Prior VTE?: No VTE Risk Level:: Medical - moderate - high VTE Device Contraindication: Treatment Not Indicated VTE Drug Contraindication: N/A - Med Ordered
[2024-07-22 11:35] LABS: Adenovirus PCR Not Detected (Not Detect.); Bordetella parapertussis PCR Not Detected (Not Detect.); Bordetella pertussis PCR Not Detected (Not Detect.); Chlamydia pneumoniae PCR Not Detected (Not Detect.); Coronavirus 229E PCR Not Detected (Not Detect.); Coronavirus HKU1 PCR Not Detected (Not Detect.); Coronavirus NL63 PCR Not Detected (Not Detect.); Coronavirus OC43 PCR Not Detected (Not Detect.); Human metapneumovirus PCR Not Detected (Not Detect.); Influenza A PCR Not Detected (Not Detect.); Influenza B PCR Not Detected (Not Detect.); Mycoplasma pneumoniae PCR Not Detected (Not Detect.); Parainfluenza 1 PCR Not Detected (Not Detect.); Parainfluenza 2 PCR Not Detected (Not Detect.); Parainfluenza 3 PCR Not Detected (Not Detect.); Parainfluenza 4 PCR Not Detected (Not Detect.); RSV PCR Not Detected (Not Detect.); Rhino/Enterovirus PCR Not Detected (Not Detect.)
[2024-07-22 11:38] LABS: SARS-CoV-2 PCR Not Detected (Not Detect.)
[2024-07-22] MEDS: Azithromycin 500 MG in 0.9 % Sodium Chloride 250 ML 125 MG IV (12:01)
--- NOTE | 2024-07-22 12:33 | PM.CNPUL ---
History of Present Illness History of Present Illness Consult date: 07/22/24 Chief complaint: pneumonia with sepsis, hypoxia Narrative: This is an inpatient pulmonary consultation. The Pt is a 54-year-old female with a PMH significant for opiate use disorder on methadone and sober x5 months, presents to the ED with?for evaluation of SOB and generalized weakness. Patient reports symptoms began 5 days ago when she started to feel ?weird?. Developed mostly nonproductive cough, shortness of breath, difficulty breathing, and became tired and lethargic. States she has been sleeping and in bed all day for the past 2 days. Patient's was also sick with respiratory symptoms that preceded the patient's and apparently he thought he had COVID but did not test for it. In the ED pt was febrile up to 102.7, with elevated HR of 93, soft BP of 107/51, and desatting as low as 62% on RA. Labs were significant for leukocytosis of 14.6, normocytic anemia of 10.4/31.6, and alk-phos 151. No significant electrolyte abnormalities. Renal function WNL. UA consistent with UTI. Tested negative for flu, RSV, and COVID. CXR showed findings most suggestive of multifocal atypical pneumonia. Pt was treated with acetaminophen, ibuprofen, doxycycline, and ceftriaxone. Pt will be admitted to the hospital for treatment and further evaluation of acute hypoxic respiratory failure in the setting of multifocal atypical pneumonia with sepsis. She underwent a CT chesty personally reviewed by me with extensive GGO and basilar consolidations. She is on broadspectrum antibiotics at this time. Review of Systems Constitutional: Constitutional: Reports fatigue, Reports fever(s) and Reports malaise Eyes: Eyes: Reports no additional eye complaints ENT: Reports dizziness Cardiovascular: Cardiovascular: Denies chest pain, Reports dyspnea and Reports dyspnea on exertion Respiratory: Respiratory: Reports chest congestion, Reports cough, Reports dyspnea, Reports dyspnea on exertion and Denies wheezing Gastrointestinal: Gastrointestinal: Reports no additional gastrointestinal complaints Musculoskeletal: Musculoskeletal: Reports no additional musculoskeletal complaints Neurologic: Reports dizziness Endocrine: Endocrine: Reports fatigue Hematologic/Lymphatic: Hematologic/Lymphatic: Reports no additional hematologic/lymphatic complaints Allergic/Immunologic: Allergic/Immunologic: Denies wheezing PMFSH Past Medical History Medical History (Updated 07/22/24 @ 12:43 by Gopal Rodriguez MD) Bipolar disorder MDD (major depressive disorder) Anxiety Opioid use disorder No known health problems Social History Social History Household Members: Spouse Housing: Apartment Do you presently have visiting nurse or other home services: No Patient Tobacco Use Status: Current everyday Tobacco user Cigarette Packs Per Day: 1 Cigarettes Per Day: 20.0 Smoked in Last 30 Days: Yes Use of substances other than those prescribed or required for medical reasons: No Currently Displaying Signs/Symptoms of Drug Intoxication Withdrawal: No Have you been hit, kicked, punched, or otherwise hurt by someone within the past year? If so, by whom?: No Do you feel safe in your current relationship?: Yes Is there a partner from a previous relationship who is making you feel unsafe now?: No Are you made to feel afraid or neglected: No Advance Directives: Yes Advance Directives Information Provided: No Advance Directives on File: No Advance Directives Date on File: 07/18/24 Do you have a plan to hurt others: No Plan Nutrition Risks: No Nutritional Risk Patient : No : No Poor oral hygiene: No service: No Meds Allergies Allergy/AdvReac Type Severity Reaction Status Date / Time No Known Allergies Allergy Verified 07/17/24 17:42 [No Known Allergies*] Active Medications: Current Medications Acetaminophen (Acetaminophen 325 Mg Tablet) 650 mg PO Q6H PRN PRN Reason: Pain, Mild (Pain Scale 1-3), fever or headache Last Admin: 07/20/24 09:12 Dose: 650 mg Albuterol Sulfate (Albuterol Sulfate (0.083%) 2.5 Mg/3 Ml Vial.Neb) 2.5 mg INHALE Q4H PRN PRN Reason: Shortness of Breath/Wheezing Last Admin: 07/19/24 18:32 Dose: 2.5 mg Albuterol/Ipratropium (Albuterol/Iprat 2.5/0.5mg 3 Ml Ampul.Neb) 3 ml INHALE RQ6H WHILE AWAKE NANCY Last Admin: 07/22/24 11:18 Dose: Not Given Benzonatate (Benzonatate 100 Mg Capsule) 100 mg PO TID PRN PRN Reason: Cough Last Admin: 07/21/24 08:21 Dose: 100 mg Calcium Carbonate (Calcium Carbonate 750 Mg Tab.Chew) 750 mg PO Q4H PRN PRN Reason: Heartburn Clonidine HCl (Clonidine Hcl 0.1 Mg Tablet) 0.1 mg PO TID PRN; Protocol PRN Reason: Anxiety Last Admin: 07/22/24 08:00 Dose: 0.1 mg Enoxaparin Sodium (Enoxaparin Sodium 40 Mg/0.4 Ml Syringe) 40 mg SUBCUT Q24H [facility] Last Admin: 07/21/24 21:11 Dose: 40 mg Escitalopram Oxalate (Escitalopram Oxalate 20 Mg Tablet) 20 mg PO DAILY [facility] Last Admin: 07/22/24 07:51 Dose: 20 mg Furosemide (Furosemide 20 Mg/2 Ml Vial) 40 mg IVPUSH DAILY [facility]; Protocol Last Admin: 07/22/24 07:51 Dose: 40 mg Guaifenesin (Guaifenesin La 600 Mg Tab.Er.12h) 600 mg PO BID [facility] Last Admin: 07/22/24 07:51 Dose: 600 mg Hydroxyzine HCl (Hydroxyzine Hcl 50 Mg Tablet) 50 mg PO TID PRN PRN Reason: Anxiety Last Admin: 07/22/24 08:00 Dose: 50 mg Ceftriaxone Sodium 1 gm/ (Sodium Chloride) 50 mls @ 100 mls/hr IV Q24H [facility] Last Infusion: 07/21/24 21:14 Dose: Infused Azithromycin 500 mg/ Sodium (Chloride) 250 mls @ 125 mls/hr IV Q24H [facility] Last Admin: 07/22/24 12:01 Dose: 125 mls/hr Ibuprofen (Ibuprofen 400 Mg Tablet) 400 mg PO Q6H PRN PRN Reason: Pain, Moderate(Pain Scale 4-6) Last Admin: 07/21/24 15:33 Dose: 400 mg Lamotrigine (Lamotrigine 100 Mg Tablet) 100 mg PO DAILY [facility] Last Admin: 07/22/24 07:51 Dose: 100 mg Magnesium Hydroxide (Milk Of Magnesia 30 Ml Oral.Susp) 30 ml PO DAILY PRN PRN Reason: Constipation Melatonin (Melatonin 3 Mg Tablet) 6 mg PO BEDTIME PRN PRN Reason: Insomnia Last Admin: 07/20/24 19:45 Dose: 6 mg Methadone HCl (Methadone Hcl 20 Mg/2 Ml Oral.Conc) 115 mg PO DAILY [facility] Last Admin: 07/22/24 08:01 Dose: 115 mg Methylprednisolone Sodium Succinate (Methylprednisolone Sod Succ 40 Mg/Ml Vial) 40 mg IVPUSH Q24H [facility] Last Admin: 07/22/24 09:26 Dose: 40 mg Nicotine (Nicotine 21 Mg Patch.Td24) 21 mg TRANSDERMA DAILY [facility] Last Admin: 07/22/24 07:56 Dose: Not Given Ondansetron HCl (Ondansetron Hcl 4 Mg/2 Ml Vial) 4 mg IVPUSH Q8H PRN PRN Reason: Nausea and Vomiting Quetiapine Fumarate (Quetiapine Fumarate 300 Mg Tablet) 300 mg PO BID [facility] Last Admin: 07/22/24 07:51 Dose: 300 mg Sodium Chloride (0.9 % Sodium Chloride Flush 3 Ml Syringe) 3 ml IVFLUSH QSHIFT [facility] Last Admin: 07/22/24 07:52 Dose: 3 ml Home Medications ?Medication ?Instructions ?Recorded ?Confirmed ?Last Taken ?Type clonidine HCl 0.1 mg tablet 0.1 mg PO TID PRN insomnia 07/18/24 07/18/24 2 Days Ago History ~07/16/24 escitalopram oxalate 20 mg tablet 20 mg PO DAILY 07/18/24 07/18/24 2 Days Ago History ~07/16/24 hydroxyzine HCl 25 mg tablet 50 mg PO TID PRN insomnia 07/18/24 07/18/24 2 Days Ago History ~07/16/24 lamotrigine 100 mg tablet 100 mg PO DAILY 07/18/24 07/18/24 2 Days Ago History ~07/16/24 methadone 10 mg/5 mL oral solution 115 mg PO DAILY 07/18/24 07/18/24 07/15/24 History 115 quetiapine 300 mg tablet (Seroquel) 300 mg PO BID 07/18/24 07/18/24 2 Days Ago History ~07/16/24 Physical Exam Vital Signs: Vital Signs: Last Vital Signs Temp 97.4 F 07/22/24 07:39 Pulse 50 07/22/24 07:39 Resp 18 07/22/24 07:39 BP 138/58 L 07/22/24 07:39 Pulse Ox 94 07/22/24 07:39 O2 Del Method Nasal Cannula 07/22/24 07:39 O2 Flow Rate 4.0 07/22/24 07:39 Oxygen Flow Rate 4 07/17/24 23:45 BMI result Body Mass Index 21.9 Const: General: comfortable HEENT: Head: Yes normocephalic Neck: Neck: Yes supple Chest: Chest palpation & inspection: normal inspection of the chest Resp: Effort & Inspection: normal respiratory effort Auscultation: diminished lung sounds Cardio: Heart sounds: S1 normal heart sound present and S2 normal heart sound present GI: Palpation (GI): Soft to palpation Skin: General skin exam: no rashes or lesions noted Extrem: General: Yes no clubbing, cyanosis or edema Results Laboratory Findings 07/22/24 05:06 07/22/24 05:06 Abnormal lab findings: Abnormal Labs 07/17/24 07/18/24 07/18/24 19:28 00:54 01:23 WBC 14.6 H RBC 3.46 L Hgb 10.4 L Hct 31.6 L Immature Gran % (Auto) 1.9 H Neut % (Auto) 77.1 H Lymph % (Auto) 15.2 L Abs Immat Gran (auto) 0.28 H Absolute Neuts (auto) 11.2 H Absolute Nucleated RBC 0.090 H Nucleated RBC % (auto) 0.6 H VBG pH 7.45 H VBG HCO3 32 H Carbon Dioxide Anion Gap BUN 19 H POC Glucose 118 H Random Glucose 117 H TIBC Alkaline Phosphatase 151 H B-Natriuretic Peptide Albumin 3.4 L Urine Protein 100 (2+) H Urine Blood Large (3+) H Ur Leukocyte Esterase Large (3+) H Urine RBC 6-10 H Urine WBC >50 H Urine Methadone Screen Positive H 07/19/24 07/20/24 07/21/24 06:12 05:54 05:18 WBC 16.6 H 12.0 H RBC 3.02 L 3.00 L Hgb 9.0 L 8.8 L Hct 28.2 L 27.9 L Immature Gran % (Auto) Neut % (Auto) Lymph % (Auto) Abs Immat Gran (auto) Absolute Neuts (auto) Absolute Nucleated RBC 0.080 H 0.050 H Nucleated RBC % (auto) 0.5 H 0.4 H VBG pH VBG HCO3 Carbon Dioxide Anion Gap 11 L BUN 17 H POC Glucose Random Glucose TIBC Alkaline Phosphatase B-Natriuretic Peptide 293 H Albumin Urine Protein Urine Blood Ur Leukocyte Esterase Urine RBC Urine WBC Urine Methadone Screen 07/22/24 05:06 WBC 12.1 H RBC 3.11 L Hgb 9.1 L Hct 28.2 L Immature Gran % (Auto) Neut % (Auto) Lymph % (Auto) Abs Immat Gran (auto) Absolute Neuts (auto) Absolute Nucleated RBC 0.020 H Nucleated RBC % (auto) VBG pH VBG HCO3 Carbon Dioxide 30 H Anion Gap BUN 19 H POC Glucose Random Glucose TIBC 185 L Alkaline Phosphatase B-Natriuretic Peptide Albumin Urine Protein Urine Blood Ur Leukocyte Esterase Urine RBC Urine WBC Urine Methadone Screen Microbiology: Microbiology 07/17/24 23:32 Blood - Venous Blood Culture - Preliminary No growth after 48 hours. 07/17/24 23:33 Blood - Venous Blood Culture - Preliminary No growth after 48 hours. 07/17/24 Unknown Urine clean catch - Clean Catch Midstream Urine Culture - Final Escherichia coli Assessment and Plan (1) Acute hypoxic respiratory failure: Status: Acute (2) Multifocal pneumonia: Status: Acute (3) Pneumonitis: Status: Acute appears to be for infectious then volume overload. possible post viral bacterial infection. Plan Bloodwork including HIV resp viral panel start solumedrol 40mg continue CTX/ZTX, requesting MRSA screen continue adding community MRSA coverage continue oxygen to keep pox>90% respiratory therapy Procedures Date of Service Date of Service: 07/22/24
[2024-07-22] MEDS: Albuterol/Iprat 2.5/0.5MG 3 ML AMPUL.NEB INHALE ×2 (14:38→19:31)
[2024-07-22 15:33] LABS: MRSA Nasal PCR NEGATIVE (Negative); SA Nasal PCR NEGATIVE (Negative)
[2024-07-22] MEDS: cefTRIAXone sodium 1 GM in 0.9 % Sodium Chloride 50 ML IV (20:40)
[2024-07-22] MEDS: Melatonin 3 MG TABLET 6 MG PO (21:17)
[2024-07-22] MEDS: Enoxaparin Sodium 40 MG/0.4 ML SYRINGE SUBCUT (21:17)
[2024-07-23] MEDS: Ibuprofen 400 MG TABLET PO ×2 (00:55→07:59)
[2024-07-23] MEDS: cloNIDine HCL 0.1 MG TABLET PO ×2 (00:55→08:54)
[2024-07-23 04:46] LABS: HIV AB/AG Nonreactive (Nonreactive); HIV Num 1 0.09 S/CO (0.00-0.99)
[2024-07-23 05:51] LABS: Anion Gap 13 (12-20); Blood Urea Nitrogen 19 mg/dL (9-16); Calcium 9.6 mg/dL (8.4-10.2); Carbon Dioxide 31 mmol/L (22-29); Chloride 105 mmol/L (96-108); Estimated Glomerular Filt Rate > 60; Glucose Random 115 mg/dL (60-115); Hematocrit 27.3 % (37.0-47.0); Hemoglobin 8.7 g/dl (12.0-16.0); Mean Corpuscular HGB Conc 31.9 g/dl (31.0-35.0); Mean Corpuscular Hemoglobin 29.1 pg (27.0-33.0); Mean Corpuscular Volume 91.3 fL (80.0-98.0); Mean Platelet Volume 9.6 fL (9.4-12.3); Platelet Count 370 X10*3/uL (160-400); Potassium 3.9 mmol/L (3.3-5.1); Red Blood Count 2.99 X10*6/uL (4.20-5.50); Red Cell Distribution Width 15.4 % (11.0-16.0); Sodium 145 mmol/L (135-145); White Blood Count 15.1 X10*3/uL (4.8-10.8)
[2024-07-23 05:57] LABS: B Type Natriuretic Peptide 123 pg/mL (<100)
[2024-07-23] MEDS: Albuterol/Iprat 2.5/0.5MG 3 ML AMPUL.NEB INHALE (07:35)
[2024-07-23 07:36] VITALS: PULSE 52; RESP 20; O2SAT 93
[2024-07-23 07:55] VITALS: BP 148/86; PULSE 57; RESP 20; TEMP 36.2; O2SAT 97
[2024-07-23] MEDS: lamoTRIgine 100 MG TABLET PO (07:58)
[2024-07-23] MEDS: QUEtiapine Fumarate 300 MG TABLET PO (07:58)
[2024-07-23] MEDS: hydrOXYzine HCL 50 MG TABLET PO (07:58)
[2024-07-23] MEDS: Escitalopram Oxalate 20 MG TABLET PO (07:59)
[2024-07-23] MEDS: 0.9 % Sodium Chloride Flush 3 ML SYRINGE IVFLUSH (07:59)
[2024-07-23] MEDS: guaiFENesin LA 600 MG TAB.ER.12H PO (07:59)
[2024-07-23] MEDS: methADONE HCl 20 MG/2 ML ORAL.CONC 115 MG PO (07:59)
[2024-07-23] MEDS: predniSONE 20 MG TABLET 40 MG PO (08:54)
--- NOTE | 2024-07-23 09:10 | P.PNPL_ITS ---
Subjective Subjective Date of Service: 07/23/24 Interval history: The patient was seen on exam. She is feeling a lot better after starting Solu- Medrol. She continues on the broad-spectrum antibiotics to treat her for pneumonia. She is on room air at this time. She would like to go home. I did emphasize that she should walk around switch over her medications to by mouth to make sure she is doing good and then if she is doing well she can leave in the afternoon or tomorrow. With still waiting for the blood work but at least her respiratory viral panel was negative his HIV test was negative. Indeed this could have been hypersensitivity reaction of some type or viral pneumonitis. Objective Data Labs 07/23/24 05:09 07/23/24 05:09 Labs: Laboratory Results - last 24 hr 07/22/24 07/22/24 07/22/24 08:48 09:05 09:30 WBC RBC Hgb Hct MCV MCH MCHC RDW Plt Count MPV Absolute Nucleated RBC Nucleated RBC % (auto) Hold Purple Top SEE NOTE Sodium Potassium Chloride Carbon Dioxide Anion Gap BUN Creatinine Estim Creat Clear Calc Estimated GFR Random Glucose Calcium B-Natriuretic Peptide Nasal Screen MRSA (PCR) Nasal S. aureus Screen Nasal MRSA/S.aureus Interp Respiratory Panel Diaz See Note Adenovirus (Rapid PCR) Not Detected B.pert (TEM-PCR) Not Detected B.parapertussis DNA PCR Not Detected C. pneumoniae DNA (PCR) Not Detected Coronavirus OC43 (PCR) Not Detected Coronavirus HKU1 (PCR) Not Detected Coronavirus 229E (PCR) Not Detected Coronavirus NL63 (PCR) Not Detected HIV 1&2 Ab/P24 Ag 4thGn Nonreactive Human Metapneumovir PCR Not Detected Influenza A (RT-PCR) Not Detected Influenza B (RT-PCR) Not Detected M. pneumoniae (PCR) Not Detected Parainfluenza 1 (PCR) Not Detected Parainfluenza 2 (PCR) Not Detected Parainfluenza 3 (PCR) Not Detected Parainfluenza 4 (PCR) Not Detected RSV (PCR) Not Detected Entero/Rhino (PCR) Not Detected SARS-CoV-2 RNA (RT-PCR) Not Detected 07/22/24 07/23/24 14:18 05:09 WBC 15.1 H RBC 2.99 L Hgb 8.7 L Hct 27.3 L MCV 91.3 MCH 29.1 MCHC 31.9 RDW 15.4 Plt Count 370 MPV 9.6 Absolute Nucleated RBC 0.000 Nucleated RBC % (auto) 0.0 Hold Purple Top Sodium 145 Potassium 3.9 Chloride 105 Carbon Dioxide 31 H Anion Gap 13 BUN 19 H Creatinine 0.62 Estim Creat Clear Calc 102.0 Estimated GFR > 60 Random Glucose 115 Calcium 9.6 D B-Natriuretic Peptide 123 H Nasal Screen MRSA (PCR) NEGATIVE Nasal S. aureus Screen NEGATIVE Nasal MRSA/S.aureus Interp SEE NOTE Respiratory Panel Diaz Adenovirus (Rapid PCR) B.pert (TEM-PCR) B.parapertussis DNA PCR C. pneumoniae DNA (PCR) Coronavirus OC43 (PCR) Coronavirus HKU1 (PCR) Coronavirus 229E (PCR) Coronavirus NL63 (PCR) HIV 1&2 Ab/P24 Ag 4thGn Human Metapneumovir PCR Influenza A (RT-PCR) Influenza B (RT-PCR) M. pneumoniae (PCR) Parainfluenza 1 (PCR) Parainfluenza 2 (PCR) Parainfluenza 3 (PCR) Parainfluenza 4 (PCR) RSV (PCR) Entero/Rhino (PCR) SARS-CoV-2 RNA (RT-PCR) Microbiology Microbiology Results: Microbiology 07/17/24 23:32 Blood - Venous Blood Culture - Final No growth after 5 days. 07/17/24 23:33 Blood - Venous Blood Culture - Final No growth after 5 days. 07/17/24 Unknown Urine clean catch - Clean Catch Midstream Urine Culture - Final Escherichia coli Review of Systems Constitutional: Denies fatigue, Denies fever(s) and Denies malaise Eyes: Reports no additional eye complaints Denies dizziness Cardiovascular: Denies chest pain, Denies dyspnea and Reports dyspnea on exertion Respiratory: Denies chest congestion, Reports cough, Denies dyspnea, Reports dyspnea on exertion and Denies wheezing Gastrointestinal: Reports no additional gastrointestinal complaints Musculoskeletal: Reports no additional musculoskeletal complaints Denies dizziness Endocrine: Denies fatigue Hematologic/Lymphatic: Reports no additional hematologic/lymphatic complaints Allergic/Immunologic: Denies wheezing Physical Exam 2 Vital Signs: Vital Signs: Last Vital Signs Temp 97.1 F 07/23/24 07:55 Pulse 57 07/23/24 07:55 Resp 20 07/23/24 07:55 BP 148/86 H 07/23/24 07:55 Pulse Ox 97 07/23/24 07:55 O2 Del Method Room Air 07/23/24 07:55 O2 Flow Rate 2 07/22/24 19:24 Oxygen Flow Rate 4 07/17/24 23:45 BMI result Body Mass Index 21.9 Const: General: comfortable HEENT: Head: Yes normocephalic Neck: Neck: Yes supple Chest: Chest palpation & inspection: normal inspection of the chest Resp: Effort & Inspection: normal respiratory effort Auscultation: d iminished lung sounds Cardio: Heart sounds: S1 normal heart sound present and S2 normal heart sound present GI: Palpation (GI): Soft to palpation Skin: General skin exam: no rashes or lesions noted Extrem: General: Yes no clubbing, cyanosis or edema Procedures Date of Service Date of Service: 07/23/24 Assessment and Plan Assessment and plan (1) Pneumonitis: Status: Acute (2) Acute hypoxic respiratory failure: Status: Acute (3) Multifocal pneumonia: Status: Acute Plan Switch over to oral antibiotics to complete a course Switch Solu-Medrol to prednisone 40 and taper down by 10 mg every 3 days Walking oximetry prior to discharge to make sure she no longer needs oxygen upon discharge Should follow-up with Pulmonary and primary care as an outpatient Time Spent With Patient Time: Total time managing care of this patient today ____ minutes. Progress Note: Quality Stroke Does the patient have a stroke diagnosis?: No
[2024-07-23 10:09] VITALS: O2SAT 94
--- NOTE | 2024-07-23 10:14 | PM.DS ---
DS: Providers Provider Date of Service: 07/23/24 Date of admission: 07/17/24 21:59 Date of discharge: 07/23/24 Primary care physician: Buzz Bermeo MD Consults: 07/22/24 07:25 Consult to Pulmonology Routine Consulting Provider: [facility] Reason for consultation: Right sided infiltrates, eval and rec. DS: Diagnosis Discharge Diagnosis (1) Pneumonitis: Status: Acute (2) Acute hypoxic respiratory failure: Status: Acute (3) Multifocal pneumonia: Status: Acute DS: Summary Hospital Course Hospital Course: from initial hpi: 54-year-old female with a PMH significant for opiate use disorder on methadone and sober x5 months, depression/anxiety, and bipolar disorder who presents to the ED with?for evaluation of SOB and generalized weakness. Patient reports symptoms began 5 days ago when she started to feel ?weird?. Developed mostly nonproductive cough, shortness of breath, difficulty breathing, and became tired and lethargic. States she has been sleeping and in bed all day for the past 2 days. Patient's was also sick with respiratory symptoms that preceded the patient's and apparently he thought he had COVID but did not test for it. Patient thought she likely had COVID as well. Last night patient reports she was too weak to stand and slid to the floor, though was able to get herself up. This morning symptoms were even worse and patient could not hold on to anything, including her coffee cup. Lower leg weakness persisted and patient's legs gave out on her and she sank to her knees and was unable to stand up. Subjective fever and chills, though did not take her temperature. Patient denies chest pain/pressure, palpitations. No nausea, vomiting, abdominal pain. Denies polyuria or dysuria. Patient currently smokes 1 pack daily. In the ED pt was febrile up to 102.7, with elevated HR of 93, soft BP of 107/51, and desatting as low as 62% on RA. Labs were significant for leukocytosis of 14.6, normocytic anemia of 10.4/31.6, and alk-phos 151. No significant electrolyte abnormalities. Renal function WNL. UA consistent with UTI. Tested negative for flu, RSV, and COVID. CXR showed findings most suggestive of multifocal atypical pneumonia. Pt was treated with acetaminophen, ibuprofen, doxycycline, and ceftriaxone. Pt will be admitted to the hospital for treatment and further evaluation of acute hypoxic respiratory failure in the setting of multifocal atypical pneumonia with sepsis. hospital course: Patient was admitted for acute hypoxic respiratory failure and sepsis secondary to multifocal pneumonia versus pneumonitis. She was treated with ceftriaxone azithromycin and IV steroids. Symptoms slowly improved and was able to be weaned off oxygen. Will be transitioned to 5 more days of cefuroxime and azithromycin and prednisone. Workup for vasculitis and pneumonitis has been negative so far, some results are still pending and should be followed up with Pulmonary as outpatient. For urinary tract infection due to E coli was treated with ceftriaxone. For opiate dependence was continued on methadone. For mood disorder remained stable on home meds. Patient is feeling better will be discharged home. Time Attestation Discharge Coordination Time (in mins): 33 Quality: Safe Use of Opioids Does Pt have an Active Cancer Diagnosis on the Problem List?: No Quality: Stroke Does the patient have a stroke diagnosis?: No Physical Exam Vital Signs: Vital Signs: Last Vital Signs Temp 97.1 F 07/23/24 07:55 Pulse 57 07/23/24 07:55 Resp 20 07/23/24 07:55 BP 148/86 H 07/23/24 07:55 Pulse Ox 94 07/23/24 10:09 O2 Del Method Room Air 07/23/24 10:09 O2 Flow Rate 2 07/22/24 19:24 Oxygen Flow Rate 4 07/17/24 23:45 BMI result Body Mass Index 21.9 Const: General: comfortable HEENT: Head: Yes normocephalic Neck: Neck: Yes supple Chest: Chest palpation & inspection: normal inspection of the chest Resp: Effort & Inspection: normal respiratory effort Auscultation: diminished lung sounds Cardio: Heart sounds: S1 normal heart sound present and S2 normal heart sound present GI: Palpation (GI): Soft to palpation Skin: General skin exam: no rashes or lesions noted Extrem: General: Yes no clubbing, cyanosis or edema DS: Data Data Completed and Pending Labs on day of discharge: Laboratory Results - last 24 hr 07/22/24 07/22/24 07/22/24 09:05 09:30 14:18 WBC RBC Hgb Hct MCV MCH MCHC RDW Plt Count MPV Absolute Nucleated RBC Nucleated RBC % (auto) Sodium Potassium Chloride Carbon Dioxide Anion Gap BUN Creatinine Estim Creat Clear Calc Estimated GFR Random Glucose Calcium B-Natriuretic Peptide Nasal Screen MRSA (PCR) NEGATIVE Nasal S. aureus Screen NEGATIVE Nasal MRSA/S.aureus Interp SEE NOTE Respiratory Panel Diaz See Note Adenovirus (Rapid PCR) Not Detected B.pert (TEM-PCR) Not Detected B.parapertussis DNA PCR Not Detected C. pneumoniae DNA (PCR) Not Detected Coronavirus OC43 (PCR) Not Detected Coronavirus HKU1 (PCR) Not Detected Coronavirus 229E (PCR) Not Detected Coronavirus NL63 (PCR) Not Detected HIV 1&2 Ab/P24 Ag 4thGn Nonreactive Human Metapneumovir PCR Not Detected Influenza A (RT-PCR) Not Detected Influenza B (RT-PCR) Not Detected M. pneumoniae (PCR) Not Detected Parainfluenza 1 (PCR) Not Detected Parainfluenza 2 (PCR) Not Detected Parainfluenza 3 (PCR) Not Detected Parainfluenza 4 (PCR) Not Detected RSV (PCR) Not Detected Entero/Rhino (PCR) Not Detected SARS-CoV-2 RNA (RT-PCR) Not Detected 07/23/24 05:09 WBC 15.1 H RBC 2.99 L Hgb 8.7 L Hct 27.3 L MCV 91.3 MCH 29.1 MCHC 31.9 RDW 15.4 Plt Count 370 MPV 9.6 Absolute Nucleated RBC 0.000 Nucleated RBC % (auto) 0.0 Sodium 145 Potassium 3.9 Chloride 105 Carbon Dioxide 31 H Anion Gap 13 BUN 19 H Creatinine 0.62 Estim Creat Clear Calc 102.0 Estimated GFR > 60 Random Glucose 115 Calcium 9.6 D B-Natriuretic Peptide 123 H Nasal Screen MRSA (PCR) Nasal S. aureus Screen Nasal MRSA/S.aureus Interp Respiratory Panel Diaz Adenovirus (Rapid PCR) B.pert (TEM-PCR) B.parapertussis DNA PCR C. pneumoniae DNA (PCR) Coronavirus OC43 (PCR) Coronavirus HKU1 (PCR) Coronavirus 229E (PCR) Coronavirus NL63 (PCR) HIV 1&2 Ab/P24 Ag 4thGn Human Metapneumovir PCR Influenza A (RT-PCR) Influenza B (RT-PCR) M. pneumoniae (PCR) Parainfluenza 1 (PCR) Parainfluenza 2 (PCR) Parainfluenza 3 (PCR) Parainfluenza 4 (PCR) RSV (PCR) Entero/Rhino (PCR) SARS-CoV-2 RNA (RT-PCR) Discharge Plan Discharge Anticipated Discharge Date/Time: 07/23/24 10:08 Patient Disposition: Home, Self-Care Discharge Diagnosis: pneumonia/pneumonitis Referrals: Buzz Bermeo MD [Primary Care Provider] - 1 Week Gopal Rodriguez MD [Physician] - 1 Week Discharge Medications: New prednisone 20 mg Tablet 40 mg PO DAILY Qty: 10 0RF azithromycin 500 mg tablet 500 mg PO DAILY 5 Days Qty: 5 0RF cefuroxime axetil 500 mg tablet 500 mg PO Q12H Qty: 10 0RF Continued methadone 10 mg/5 mL Solution 115 mg PO DAILY clonidine HCl 0.1 mg tablet 0.1 mg PO TID PRN (Reason: insomnia) lamotrigine 100 mg tablet 100 mg PO DAILY escitalopram oxalate 20 mg tablet 20 mg PO DAILY quetiapine [Seroquel] 300 mg tablet 300 mg PO BID hydroxyzine HCl 25 mg tablet 50 mg PO TID PRN (Reason: insomnia) Discharge Orders: Discharge Order (Routine); Ordered 07/23/24 Ordered By: Jose D Steel Diet: Advance to usual diet Activity on Discharge: As tolerated Stand Alone Forms: Patient Portal Discharge page Print Language: Arabic Care Plan Goals: recovery Health Concerns: pneumonia and pneumonitis Plan of Treatment: 5 more days antibiotics and steroids, follow up with pulmonary Assessment: see above
--- NOTE | 2024-07-23 12:10 | MHC.CM.PN ---
PT DCD HOME SELF CARE
[2024-07-24 13:43] LABS: Anti Nuclear Antibody Screen NEGATIVE (NEGATIVE)
[2024-07-24 14:28] LABS: Myeloperoxidase Antibody <1.0 AI; Proteinase 3 PR3 Antibodies <1.0 AI
[2024-07-24 23:09] LABS: Strep Pneumo Ag urine Not Detected (Not Detected)
[2024-07-25 08:58] LABS: Legionella Ag Urine Not Detected (Not Detected)
[2024-08-02 14:04] LABS: Asperg fumigatus Precip Abs NEGATIVE (NEGATIVE); Micropoly faeni Abs NEGATIVE (NEGATIVE); Pigeon serum Abs NEGATIVE (NEGATIVE); Saccharo pora viridis Abs NEGATIVE (NEGATIVE); Thermo candidus Abs NEGATIVE (NEGATIVE); Thermoa vulgaris #1 NEGATIVE (NEGATIVE)
== END 2024-07-23 12:02 | disposition home or self-care (01) | DRG 871 ==
LOC: HO.ED 20:52 → HO.EDOVER 23:11 → HO.S3 07-18 02:19
PROVIDERS: Hospitalist; Internal Medicine; Physician Assistant; Student in an Organized Health Care Education/Training Program; Admitting Provider Student in an Organized Health Care Education/Training Program; Emergency Provider Emergency Medicine; PCP Internal Medicine; Visit Provider Internal Medicine
DX: A41.9 Sepsis, unspecified organism (principal); J96.01 Acute respiratory failure with hypoxia; F11.20 Opioid dependence, uncomplicated; J98.11 Atelectasis; B96.20 Unspecified Escherichia coli [E. coli] as the cause of diseases classified elsewhere; F31.9 Bipolar disorder, unspecified; F17.210 Nicotine dependence, cigarettes, uncomplicated; Z71.6 Tobacco abuse counseling; Z20.822 Contact with and (suspected) exposure to COVID-19; Z79.899 Other long term (current) drug therapy
CPT/HCPCS: 0241U; 36415; 71045; 71046; 71250; 80048; 80076; 80307; 81001; 82550; 82803; 82947; 83540; 83605; 83735; 83880; 85025; 85027; 86021; 86038; 86331; 86606; 86609; 87040; 87086; 87088; 87186; 87389; 87449; 87633; 87640; 87641; 87899; 93005; 93306; 94640; 99285; J0456; J0696; J1100; J1650; J1940; J2919; J7120; Q9957

== ENCOUNTER 2024-07-17 21:59 | Outpatient (BNV) | payer MEDICARE, MEDICAID, SELFPAY | END 2024-07-22 07:00 | PROVIDERS: Admitting Provider Student in an Organized Health Care Education/Training Program; Emergency Provider Emergency Medicine; PCP Internal Medicine; Visit Provider Internal Medicine Cardiovascular Disease | DX: I36.1 Nonrheumatic tricuspid (valve) insufficiency (principal) | CPT/HCPCS: 93306 ==

== ENCOUNTER → 2024-07-17 21:59 | Outpatient (BNV) | payer MEDICARE, MEDICAID, SELFPAY | PROVIDERS: Admitting Provider Student in an Organized Health Care Education/Training Program; Emergency Provider Emergency Medicine; PCP Internal Medicine; Visit Provider Student in an Organized Health Care Education/Training Program | DX: A41.9 Sepsis, unspecified organism (principal); J96.01 Acute respiratory failure with hypoxia; N39.0 Urinary tract infection, site not specified; J18.9 Pneumonia, unspecified organism | CPT/HCPCS: 99223; 99232; 99233; 99239 ==

== ENCOUNTER → 2024-07-17 21:59 | Outpatient (BNV) | payer MEDICARE, MEDICAID, SELFPAY | PROVIDERS: Admitting Provider Student in an Organized Health Care Education/Training Program; Emergency Provider Emergency Medicine; PCP Internal Medicine; Visit Provider Hospitalist | DX: J98.4 Other disorders of lung (principal); J96.01 Acute respiratory failure with hypoxia; J18.9 Pneumonia, unspecified organism | CPT/HCPCS: 99223; 99233 ==

== ENCOUNTER 2024-11-11 13:29 | Inpatient (IN) | payer MEDICARE, MEDICAID, SELFPAY ==
[2024-11-11] VITALS (20 sets, daily range): BP systolic 92–131; BP diastolic 46–87; PULSE 39–82; RESP 13–20; TEMP 36.4–38.1; O2SAT 84–99; BMI 25.1
--- NOTE | ~2024-11-11 | XR_ITS ---
EXAMINATION: XR CHEST CLINICAL INFORMATION: SOB COMPARISON: 07/19/2024, 07/17/2024. CT chest 07/21/2024. TECHNIQUE: PA and lateral views of the chest were obtained. FINDINGS: Borderline cardiac enlargement, mediastinal and hilar contours appear normal. Patchy airspace opacity right middle lobe distribution. Lungs otherwise clear. There is no pneumothorax or pleural effusion. There is no focal osseous or soft tissue abnormality. XR/XR chest 2V IMPRESSION: Right middle lobe pneumonia. No effusions. Electronically signed by: Lon Pryor MD 11/11/2024 02:42 PM EST
--- NOTE | 2024-11-11 13:31 | ECG_ITS ---
Test Reason : chest pain Blood Pressure : */* mmHG Vent. Rate : 65 BPM Atrial Rate : 65 BPM P-R Int : 132 ms QRS Dur : 82 ms QT Int : 408 ms P-R-T Axes : 60 62 49 degrees QTcB Int : 424 ms Normal sinus rhythm Cannot rule out Anterior infarct (cited on or before 18-Jul-2024) Abnormal ECG When compared with ECG of 18-Jul-2024 01:02, QT has shortened Referred By: Clover Brandt Electronically Signed By: ANASTACIO GORDON
--- NOTE | 2024-11-11 13:57 | ED.URI ---
HPI - URI/Sore Throat General Chief Complaint: Upper Respiratory Symptoms Stated Complaint: Chest pain, SOB Time Seen by Provider: 11/11/24 18:11 Source: patient Limitations: no limitations History of Present Illness ED Provider: Yanni Montejo PA-C HPI Narrative: 54 y/o female with a history opiate use disorder on methadone, sober x8 months, depression/anxiety, bipolar disorder, prior tobacco abuse, prior admission for multifocal pneumonia in July of 2024, presents with cough/ cold symptoms times 2-3 days. Associated generalized myalgias, subjective fevers at home, ongoing productive cough and pleuritic right-sided chest pain.. Denies sick contacts with similar symptoms, wheezing or shortness of breath. Related Data Home Medications ?Medication ?Instructions ?Recorded ?Confirmed clonidine HCl 0.1 mg tablet 0.1 mg PO TID PRN insomnia 07/18/24 07/18/24 escitalopram oxalate 20 mg tablet 20 mg PO DAILY 07/18/24 07/18/24 hydroxyzine HCl 25 mg tablet 50 mg PO TID PRN insomnia 07/18/24 07/18/24 lamotrigine 100 mg tablet 100 mg PO DAILY 07/18/24 07/18/24 methadone 10 mg/5 mL oral solution 115 mg PO DAILY 07/18/24 07/18/24 quetiapine 300 mg tablet (Seroquel) 300 mg PO BID 07/18/24 07/18/24 Previous Rx's ?Medication ?Instructions ?Recorded azithromycin 500 mg tablet 500 mg PO DAILY 5 days #5 tabs 07/23/24 cefuroxime axetil 500 mg tablet 500 mg PO Q12H #10 tabs 07/23/24 prednisone 20 mg tablet 40 mg (2 x 20 mg) PO DAILY #10 tabs 07/23/24 Allergies Allergy/AdvReac Type Severity Reaction Status Date / Time No Known Allergies Allergy Verified 11/11/24 13:59 [No Known Allergies*] Review of Systems Review of Systems: Yes all other systems are reviewed and are negative Constitutional: Constitutional: Reports fatigue, Reports fever(s) and Reports malaise Cardiovascular: Cardiovascular: Reports chest pain and Reports dyspnea Respiratory: Respiratory: Reports chest congestion, Reports cough, Reports dyspnea and Denies wheezing Gastrointestinal: Gastrointestinal: Denies abdominal pain, Denies nausea and Denies vomiting Musculoskeletal: Musculoskeletal: Reports myalgias Endocrine: Endocrine: Reports fatigue Allergic/Immunologic: Allergic/Immunologic: Denies wheezing PMFSH Past Medical History Attestation statement: The following information was validated with the patient. Medical History (Updated 11/11/24 @ 18:37 by SALVATORE Ward) Bipolar disorder MDD (major depressive disorder) Anxiety Opioid use disorder No known health problems Social History Social History Household Members: Spouse Housing: Apartment Do you presently have visiting nurse or other home services: No Patient Tobacco Use Status: Current everyday Tobacco user Cigarette Packs Per Day: 1 Cigarettes Per Day: 20.0 Smoked in Last 30 Days: No Use of substances other than those prescribed or required for medical reasons: No Advance Directives: Yes Advance Directives on File: Yes Advance Directives Date on File: 07/18/24 Do you have a plan to hurt others: No Plan service: No Physical Exam Vital Signs: Vital Signs: Last Vital Signs Temp 98.5 F 11/11/24 17:54 Pulse 46 L 11/11/24 17:54 Resp 20 11/11/24 17:54 BP 100/56 L 11/11/24 17:54 Pulse Ox 97 11/11/24 17:58 O2 Del Method Nasal Cannula 11/11/24 17:58 O2 Flow Rate 2 11/11/24 17:54 Oxygen Flow Rate 2 11/11/24 17:58 BMI result Body Mass Index 25.1 Const: Other: Sleeping, easily woken with verbal stimuli Orientation/consciousness: patient oriented x3 Resp: Other: Nonlabored respirations, crackles noted right posterior gonsalves Cardio: Other: Normal peripheral perfusion Skin: Other: Warm dry no rash Neuro: General: patient oriented x3, no focal motor deficits and CN's II-XI intact bilaterally Psych: Other: Calm cooperative Course Course Course Narrative: This is an RME: Additional HPI, ROS, PE not included below will be deferred to primary provider. RME assessment and note performed by: Clover Brandt PA-C This is a [id number], with a hx of bipolar disorder, depression/anxiety, opiate use disorder on methadone, who presents to the ER with complaints of subjective fevers, chills, body aches, cough, and shortness of breath. Reports that she is having right sided chest pain, rating 5/10. CP worsens with laying down. Pt hypoxic at 87% on RA, placed on 2L NC. Plan: Labs, viral swabs, cxr. Reevaluation(s) Reevaluation #1: just coming in to shift, just strating assessing the Pt, sepsis identified, blood cx already collected, fever improved, starting IVF and abx for PNA, Time: 18:15 Medications Administered Discontinued Medications Generic Name Dose Route Start Last Admin Trade Name Keith PRN Reason Stop Dose Admin Acetaminophen 975 mg 11/11/24 14:01 11/11/24 14:06 Acetaminophen 325 Mg Tablet PO 11/11/24 14:02 975 mg ONCE ONE Administration Medical Decision Making Medical Decision Making MDM Narrative: 54 y/o female with a history opiate use disorder on methadone, sober x8 months, depression/anxiety, bipolar disorder, prior tobacco abuse, prior admission for multifocal pneumonia in July of 2024, presents with cough/ cold symptoms times 2-3 days. Associated generalized myalgias, subjective fevers at home, ongoing productive cough and pleuritic right-sided chest pain.. Denies sick contacts with similar symptoms, wheezing or shortness of breath. Problem: Substance abuse, psychiatric illness, prior tobacco use History: Per patient I have considered the following differential diagnoses: ACS, new heart failure, PE, pneumonia, viral syndrome, COPD exacerbation , sepsis Plan: Upon initial presentation the patient was febrile, sepsis was considered blood cultures and lactic acid were obtained as well as screening labs viral panel chest x-ray. I am now assessed in the patient, I have ordered weight based IV fluid, antibiotics, her fever is controlled. ACS was considered given chest discomfort, troponin EKG obtained. Also thought about PE given pleuritic chest discomfort with new hypoxia, however the patient has been been tachycardic, there are no objective signs symptoms for DVT on exam, an infectious etiology is the more likely cause for the hypoxia, deferring a dimer as I do not feel it is clinically warranted. She is not wheezing to suggest COPD exacerbation. Labs: No leukocytosis, not anemic, lactic acid 1.7, viral panel negative, no electrolyte abnormality, troponin negative at less than 2.7 EKG: Sinus rhythm rate of 65, no ischemic changes no ectopy Chest x-ray:FINDINGS: Borderline cardiac enlargement, mediastinal and hilar contours appear normal. Patchy airspace opacity right middle lobe distribution. Lungs otherwise clear. There is no pneumothorax or pleural effusion. There is no focal osseous or soft tissue abnormality. XR/XR chest 2V IMPRESSION: Right middle lobe pneumonia. No effusions. Lab Data 11/11/24 14:25 11/11/24 14:25 Labs: Lab Results 11/11/24 11/11/24 11/11/24 Range/Units 14:10 14:25 14:32 WBC 4.8 (4.8-10.8) X10*3/uL RBC 3.60 L D (4.20-5.50) X10*6/uL Hgb 10.9 L D (12.0-16.0) g/dl Hct 32.7 L (37.0-47.0) % MCV 90.8 (80.0-98.0) fL MCH 30.3 (27.0-33.0) pg MCHC 33.3 (31.0-35.0) g/dl RDW 13.9 (11.0-16.0) % Plt Count 148 L D (160-400) X10*3/uL MPV 9.9 (9.4-12.3) fL Immature Gran % (Auto) 0.4 (0.0-0.4) % Neut % (Auto) 64.1 (45-73) % Lymph % (Auto) 24.2 (20-40) % [place] % (Auto) 10.1 (2-11) % Eos % (Auto) 0.6 (0-4) % Baso % (Auto) 0.6 (0-2) % Lymph # (Auto) 1.2 (1.2-4.9) X10*3/uL [place] # (Auto) 0.5 (0.1-1.2) X10*3/uL Eos # (Auto) 0.0 (0.0-0.4) X10*3/uL Baso # (Auto) 0.0 (0.0-0.2) X10*3/uL Abs Immat Gran (auto) 0.02 (0.00-0.03) X10*3/uL Absolute Neuts (auto) 3.0 (2.0-8.3) x10*3/uL Absolute Nucleated RBC 0.000 (0.0-0.012) X10*3/uL Nucleated RBC % (auto) 0.0 (0.0-0.2) /100WBC PT 10.8 L (10.9-12.4) SEC INR 0.9 (0.9-1.1) VBG pH 7.38 (7.32-7.43) VBG pCO2 50 mmHg VBG pO2 86 mmHg VBG HCO3 30 H (22-26) mmol/L VBG O2 Saturation 98.0 % VBG Base Excess 4.7 mmol/L Sodium 138 (135-145) mmol/L Potassium 3.8 (3.3-5.1) mmol/L Chloride 103 (96-108) mmol/L Carbon Dioxide 27 (22-29) mmol/L Anion Gap 12 (12-20) BUN 8 L (9-16) mg/dL Creatinine 0.71 (0.5-1.4) mg/dL Estim Creat Clear Calc 89.1 Estimated GFR > 60 Random Glucose 115 (60-115) mg/dL Lactic Acid 1.7 (0.5-2.0) mmol/L Calcium 8.6 D (8.4-10.2) mg/dL Magnesium 1.7 (1.6-2.6) mg/dL Total Bilirubin 0.2 (0.0-1.0) mg/dL Direct Bilirubin < 0.2 (0.0-0.5) mg/dL AST 42 H (5-31) U/L ALT 26 (0-31) U/L Alkaline Phosphatase 101 (39-117) U/L Troponin I High Sens < 2.7 (<3.5-17.0) ng/L B-Natriuretic Peptide 45 (<100) pg/mL Total Protein 7.0 (6.5-8.0) g/dL Albumin 3.8 (3.5-5.0) g/dL Influenza Type A (PCR) NEGATIVE (Negative) Influenza Type B (PCR) NEGATIVE (Negative) RSV RNA Qual (PCR) NEGATIVE (Negative) SARS-CoV-2 RNA (RT-PCR) NEGATIVE (Negative) Discharge Plan Discharge Clinical Impression: Pneumonia, Hypoxia, Sepsis Patient Disposition: Admitted As Inpatient Prescriptions: No Action methadone 10 mg/5 mL Solution 115 mg PO DAILY clonidine HCl 0.1 mg tablet 0.1 mg PO TID PRN (Reason: insomnia) lamotrigine 100 mg tablet 100 mg PO DAILY escitalopram oxalate 20 mg tablet 20 mg PO DAILY quetiapine [Seroquel] 300 mg tablet 300 mg PO BID hydroxyzine HCl 25 mg tablet 50 mg PO TID PRN (Reason: insomnia) prednisone 20 mg Tablet 40 mg PO DAILY Qty: 10 0RF azithromycin 500 mg tablet 500 mg PO DAILY 5 Days Qty: 5 0RF cefuroxime axetil 500 mg tablet 500 mg PO Q12H Qty: 10 0RF Print Language: Hong Konger
--- NOTE | 2024-11-11 14:03 | PC.NURSE ---
pt 87% RA in triage, placed on 2L NC with portable oxygen for good effect, saO2 96%
[2024-11-11] MEDS: Acetaminophen 325 MG TABLET 975 MG PO (14:06)
[2024-11-11 14:35] LABS: MANUAL DIFF FLAG NO
[2024-11-11 14:36] LABS: Basophils Percent Auto 0.6 % (0-2); Eosinophils Percent Auto 0.6 % (0-4); Hematocrit 32.7 % (37.0-47.0); Hemoglobin 10.9 g/dl (12.0-16.0); Imm Gran Abs Auto 0.02 X10*3/uL (0.00-0.03); Imm Gran Pct Auto 0.4 % (0.0-0.4); Lymphocytes Absolute Auto 1.2 X10*3/uL (1.2-4.9); Lymphocytes Percent Auto 24.2 % (20-40); Mean Corpuscular HGB Conc 33.3 g/dl (31.0-35.0); Mean Corpuscular Hemoglobin 30.3 pg (27.0-33.0); Mean Corpuscular Volume 90.8 fL (80.0-98.0); Mean Platelet Volume 9.9 fL (9.4-12.3); Monocytes Absolute Auto 0.5 X10*3/uL (0.1-1.2); Monocytes Percent Auto 10.1 % (2-11); Neutrophils Percent Auto 64.1 % (45-73); Platelet Count 148 X10*3/uL (160-400); Red Cell Distribution Width 13.9 % (11.0-16.0); White Blood Count 4.8 X10*3/uL (4.8-10.8)
[2024-11-11 14:38] LABS: Venous Blood Gas Refer to POC result
[2024-11-11 14:38] LABS: VBG Base Excess 4.7 mmol/L; VBG HCO3 30 mmol/L (22-26); VBG pCO2 50 mmHg; VBG pH 7.38 (7.32-7.43); VBG pO2 86 mmHg
[2024-11-11 14:44] LABS: INTERNATIONAL NORM RATIO 0.9 (0.9-1.1); Prothrombin Time 10.8 SEC (10.9-12.4)
[2024-11-11 14:52] LABS: Lactic Acid 1.7 mmol/L (0.5-2.0)
[2024-11-11 14:58] LABS: B Type Natriuretic Peptide 45 pg/mL (<100)
[2024-11-11 15:00] LABS: Troponin-I High Sensitivity < 2.7 ng/L (<3.5-17.0)
[2024-11-11 15:01] LABS: Alanine Aminotransferase 26 U/L (0-31); Albumin Level 3.8 g/dL (3.5-5.0); Anion Gap 12 (12-20); Aspartate Amino Transferase 42 U/L (5-31); Bilirubin Direct < 0.2 mg/dL (0.0-0.5); Bilirubin Total 0.2 mg/dL (0.0-1.0); Blood Urea Nitrogen 8 mg/dL (9-16); Calcium 8.6 mg/dL (8.4-10.2); Carbon Dioxide 27 mmol/L (22-29); Chloride 103 mmol/L (96-108); Creatinine Clr Calc Pharmacy 89.1; Estimated Glomerular Filt Rate > 60; Glucose Random 115 mg/dL (60-115); Magnesium 1.7 mg/dL (1.6-2.6); Potassium 3.8 mmol/L (3.3-5.1); Sodium 138 mmol/L (135-145)
[2024-11-11 15:21] LABS: Influenza A PCR NEGATIVE (Negative); Influenza B PCR NEGATIVE (Negative); Resp Syncy Virus RNA Qual PCR NEGATIVE (Negative); SARS COV2 PCR INHOUSE NEGATIVE (Negative)
[2024-11-11 16:29] LABS: Alkaline Phosphatase 101 U/L (39-117)
--- NOTE | 2024-11-11 18:00 | PC.NURSE ---
Addendum entered by Janell Carias 11/11/24 18:57: patient reports not feeling well x2 weeks, cough/body/joint pain and started with chest pain and sob today, sinus martin on the monitor Original Note: pt is alert and oriented, skin pwd, respirations even and unlabored, ls diminished throught out and slight wheezing in the right lower bases, p
[2024-11-11] MEDS: cefTRIAXone sodium 2 GM VIAL IVPUSH (18:36)
[2024-11-11] MEDS: 0.9 % Sodium Chloride 2,177.25 ML 2177.25 ML IV (18:36)
[2024-11-11] MEDS: Doxycycline Hyclate 100 MG in 0.9 % Sodium Chloride 250 ML 166.67 MG IV (18:39)
--- NOTE | 2024-11-11 20:01 | PHA.MEDREC ---
Addendum entered by Magaly Tran RPh 11/11/24 20:04: Med rec was reviewed by [facility]. Original Note: Pharmacy Consult ? Medication Reconciliation Pharmacy has completed the medication reconciliation. Spoke to patent to confirm med list. Patient was able to name all her medications. Patient confirmed Methadone 115 mg daily from [facility], last dose was today.
--- NOTE | 2024-11-11 20:02 | PC.NURSE ---
Patient requested and given ice water. No acute distress at this time. Head of bed lowered slightly per request and lights dimmed.
--- NOTE | 2024-11-11 21:00 | P.HPHOSP_ITS ---
History of Present Illness Date of Service: 11/11/24 Chief Complaint: sob 54F PMH opiate dependence on methadone, bipolar disorder, anxiety, presented with cough and body aches. Patient reports symptoms going back a couple of days. Reporting right-sided chest pain, nonproductive cough, myalgias subjective fevers, chills, fatigue, shortness of breath worse on exertion with wheezing. In ED noted to be hypoxic to 87% on room air, low-grade fever of 100.6, chest x-ray with right middle lobe opacity. Review of Systems 2 Review of Systems: Yes all other systems are reviewed and are negative [facility] Medical History Bipolar disorder MDD (major depressive disorder) Anxiety Opioid use disorder No known health problems Social History Household Members: Spouse Housing: Apartment Do you presently have visiting nurse or other home services: No Patient Tobacco Use Status: Current everyday Tobacco user Cigarette Packs Per Day: 1 Cigarettes Per Day: 20.0 Smoked in Last 30 Days: No Use of substances other than those prescribed or required for medical reasons: No Advance Directives: Yes Advance Directives on File: Yes Advance Directives Date on File: 07/18/24 Do you have a plan to hurt others: No Plan service: No Meds Allergies Allergy/AdvReac Type Severity Reaction Status Date / Time No Known Allergies Allergy Verified 11/11/24 13:59 [No Known Allergies*] Active Medications: Current Medications Clonidine HCl (Clonidine Hcl 0.1 Mg Tablet) 0.1 mg PO TID PRN; Protocol PRN Reason: insomnia Escitalopram Oxalate (Escitalopram Oxalate 20 Mg Tablet) 20 mg PO DAILY [facility] Hydroxyzine HCl (Hydroxyzine Hcl 25 Mg Tablet) 25 mg PO TID PRN PRN Reason: insomnia Lamotrigine (Lamotrigine 100 Mg Tablet) 100 mg PO DAILY [facility] Quetiapine Fumarate (Quetiapine Fumarate 300 Mg Tablet) 300 mg PO BID [facility] Home Medications ?Medication ?Instructions ?Recorded ?Confirmed ?Last Taken ?Type clonidine HCl 0.1 mg tablet 0.1 mg PO TID PRN insomnia 07/18/24 11/11/24 11/11/24 History escitalopram oxalate 20 mg tablet 20 mg PO DAILY 1011/11/24 11/11/24 History lamotrigine 100 mg tablet 100 mg PO DAILY 07/18/24 11/11/24 11/11/24 History methadone 10 mg/5 mL oral solution 115 mg PO DAILY 07/18/24 07/18/24 07/15/24 History 115 quetiapine 300 mg tablet (Seroquel) 300 mg PO BID 07/18/24 11/11/24 11/11/24 History hydroxyzine HCl 25 mg tablet 25 - 50 mg PO TID PRN insomnia 11/11/24 11/11/24 11/11/24 History Physical Exam 2 Vital Signs and Narrative: Vital Signs: Last Vital Signs Temp 97.7 F 11/11/24 19:02 Pulse 45 L 11/11/24 19:02 Resp 13 11/11/24 19:02 BP 97/55 L 11/11/24 19:02 Pulse Ox 99 11/11/24 19:02 O2 Del Method Room Air 11/11/24 19:02 O2 Flow Rate 2 11/11/24 17:54 Oxygen Flow Rate 2 11/11/24 17:58 BMI result Body Mass Index 25.1 General: AO X 3, no acute distress Resp: wheezing bilateral, no accessory muscles used CVS: S1,S2,RRR GI: soft, non tender, non distended Neuro: motor grossly intact, alert Psych: appropriate affect, appropriate insight Results Labs 11/11/24 14:25 11/11/24 14:25 Labs: Laboratory Results - last 24 hr 11/11/24 11/11/24 11/11/24 14:10 14:25 14:32 MCV 90.8 MCH 30.3 MCHC 33.3 RDW 13.9 Plt Count 148 L D MPV 9.9 Immature Gran % (Auto) 0.4 Neut % (Auto) 64.1 Lymph % (Auto) 24.2 [place] % (Auto) 10.1 Eos % (Auto) 0.6 Baso % (Auto) 0.6 Lymph # (Auto) 1.2 [place] # (Auto) 0.5 Eos # (Auto) 0.0 Baso # (Auto) 0.0 Abs Immat Gran (auto) 0.02 Absolute Neuts (auto) 3.0 Absolute Nucleated RBC 0.000 Nucleated RBC % (auto) 0.0 PT 10.8 L INR 0.9 VBG pH 7.38 VBG pCO2 50 VBG pO2 86 VBG HCO3 30 H VBG O2 Saturation 98.0 VBG Base Excess 4.7 Anion Gap 12 Estim Creat Clear Calc 89.1 Estimated GFR > 60 Random Glucose 115 Lactic Acid 1.7 Calcium 8.6 D Magnesium 1.7 Total Bilirubin 0.2 Direct Bilirubin < 0.2 AST 42 H ALT 26 Alkaline Phosphatase 101 Troponin I High Sens < 2.7 B-Natriuretic Peptide 45 Total Protein 7.0 Albumin 3.8 Influenza Type A (PCR) NEGATIVE Influenza Type B (PCR) NEGATIVE RSV RNA Qual (PCR) NEGATIVE SARS-CoV-2 RNA (RT-PCR) NEGATIVE Imaging Radiologist's Impressions: Impressions Chest X-Ray 11/11/24 14:01 IMPRESSION: Right middle lobe pneumonia. No effusions. Electronically signed by: Lon Pryor MD 11/11/2024 02:42 PM EST Assessment and Plan (1) Pneumonia: Status: Acute Plan 54F PMH opiate dependence on methadone, bipolar disorder, anxiety, presented with cough and body aches Acute hypoxic respiratory failure secondary to pneumonia complicated by reactive airway Ceftriaxone and azithromycin, follow up cultures, wean O2 as tolerated, steroids and bronchodilators Opiate dependence Restart methadone when confirmed Reports 8 months sobriety Bipolar disorder Continue Lexapro, lamotrigine, Seroquel Anxiety atarax DVT prophylaxis with Lovenox Full Code Given hypoxic due to pneumonia complicated by reactive airway and risk factors of bipolar disorder and opiate expected require at least 2 midnights inpatient Quality Stroke Does the patient have a stroke diagnosis?: No VTE Prior VTE?: No VTE Risk Level:: Medical - moderate - high VTE Device Contraindication: Treatment Not Indicated VTE Drug Contraindication: N/A - Med Ordered
[2024-11-11] MEDS: Acetaminophen 325 MG TABLET 650 MG PO (21:52)
[2024-11-11] MEDS: Melatonin 3 MG TABLET 6 MG PO (21:52)
[2024-11-11] MEDS: methylPREDNISolone Sod Succ 40 MG/ML VIAL IVPUSH (21:53)
[2024-11-11] MEDS: Enoxaparin Sodium 40 MG/0.4 ML SYRINGE SUBCUT (21:53)
[2024-11-11] MEDS: QUEtiapine Fumarate 300 MG TABLET PO (21:53)
[2024-11-12] VITALS (10 sets, daily range): BP systolic 113–147; BP diastolic 61–73; PULSE 41–65; RESP 13–23; TEMP 36.2–37.2; O2SAT 90–96
[2024-11-12] MEDS: oxyCODONE HCl Immed Release 5 MG TABLET PO (03:15)
[2024-11-12 04:59] LABS: Hemoglobin 10.8 g/dl (12.0-16.0); Mean Corpuscular HGB Conc 32.7 g/dl (31.0-35.0); Mean Corpuscular Hemoglobin 30.2 pg (27.0-33.0); Mean Corpuscular Volume 92.2 fL (80.0-98.0); Mean Platelet Volume 10.3 fL (9.4-12.3); Platelet Count 139 X10*3/uL (160-400); Red Blood Count 3.58 X10*6/uL (4.20-5.50); Red Cell Distribution Width 13.9 % (11.0-16.0); White Blood Count 4.2 X10*3/uL (4.8-10.8)
[2024-11-12 05:21] LABS: Anion Gap 12 (12-20); Blood Urea Nitrogen 10 mg/dL (9-16); Calcium 8.6 mg/dL (8.4-10.2); Carbon Dioxide 21 mmol/L (22-29); Chloride 110 mmol/L (96-108); Creatinine Clr Calc Pharmacy 94.4; Estimated Glomerular Filt Rate > 60; Glucose Random 187 mg/dL (60-115); Magnesium 1.9 mg/dL (1.6-2.6); Potassium 4.2 mmol/L (3.3-5.1); Sodium 139 mmol/L (135-145)
--- NOTE | 2024-11-12 06:41 | PC.NURSE ---
Patient out of bed to bathroom with assistance. Denies pain at this time. Thankful to all staff. Reconnected to monitor. Care ongoing by this RN.
[2024-11-12] MEDS: Albuterol/Iprat 2.5/0.5MG 3 ML AMPUL.NEB INHALE ×3 (07:12→15:52)
[2024-11-12] MEDS: QUEtiapine Fumarate 300 MG TABLET PO ×2 (09:00→19:24)
[2024-11-12] MEDS: Escitalopram Oxalate 20 MG TABLET PO (09:00)
[2024-11-12] MEDS: lamoTRIgine 100 MG TABLET PO (09:00)
[2024-11-12] MEDS: methylPREDNISolone Sod Succ 40 MG/ML VIAL IVPUSH ×2 (09:00→19:24)
[2024-11-12] MEDS: 0.9 % Sodium Chloride Flush 3 ML SYRINGE IVFLUSH ×4 (09:00→19:25)
[2024-11-12] MEDS: Azithromycin 500 MG TABLET PO (09:00)
--- NOTE | 2024-11-12 09:07 | HO.PM.IMPN ---
Subjective Subjective Date of Service: 11/12/24 Review of Systems Follow-up pneumonia Patient denies chest pain no shortness a breath Physical Exam Vital Signs: Vital Signs: Last Vital Signs Temp 97.5 F 11/12/24 08:00 Pulse 52 11/12/24 08:00 Resp 18 11/12/24 08:00 BP 126/72 11/12/24 08:00 Pulse Ox 90 L 11/12/24 08:00 O2 Del Method Room Air 11/12/24 08:00 O2 Flow Rate 2 11/12/24 06:00 Oxygen Flow Rate 2 11/11/24 17:58 BMI result Body Mass Index 25.1 Appearing in no acute distress lung sounds rhonchi throughout heart regular rate rhythm, clear S1, S2 positive bowel sounds, abdomen is soft, nontender neuro patient is alert x3, no focal deficits Objective Data Active Medications Acetaminophen (Acetaminophen 325 Mg Tablet) 650 mg PO Q6H PRN PRN Reason: Pain, Mild 1-3,fever,headache Last Admin: 11/11/24 21:52 Dose: 650 mg Documented By: SAMARA Albuterol/Ipratropium (Albuterol/Iprat 2.5/0.5mg 3 Ml Ampul.Neb) 3 ml INHALE RQ4H WHILE AWAKE [facility] Last Admin: 11/12/24 07:12 Dose: 3 ml Documented By: MORENO Azithromycin (Azithromycin 500 Mg Tablet) 500 mg PO Q24H [facility] Last Admin: 11/12/24 09:00 Dose: 500 mg Documented By: BENSON Calcium Carbonate (Calcium Carbonate 750 Mg Tab.Chew) 750 mg PO Q4H PRN PRN Reason: Heartburn Ceftriaxone Sodium (Ceftriaxone Sodium 1 Gm Vial) 1 gm IVPUSH Q24H [facility] Clonidine HCl (Clonidine Hcl 0.1 Mg Tablet) 0.1 mg PO TID PRN; Protocol PRN Reason: insomnia Enoxaparin Sodium (Enoxaparin Sodium 40 Mg/0.4 Ml Syringe) 40 mg SUBCUT Q24H [facility] Last Admin: 11/11/24 21:53 Dose: 40 mg Documented By: SAMARA Escitalopram Oxalate (Escitalopram Oxalate 20 Mg Tablet) 20 mg PO DAILY [facility] Last Admin: 11/12/24 09:00 Dose: 20 mg Documented By: BENSON Hydroxyzine HCl (Hydroxyzine Hcl 25 Mg Tablet) 25 mg PO TID PRN PRN Reason: insomnia Lamotrigine (Lamotrigine 100 Mg Tablet) 100 mg PO DAILY [facility] Last Admin: 11/12/24 09:00 Dose: 100 mg Documented By: BENSON Magnesium Hydroxide (Milk Of Magnesia 30 Ml Oral.Susp) 30 ml PO DAILY PRN PRN Reason: Constipation Melatonin (Melatonin 3 Mg Tablet) 6 mg PO BEDTIME PRN PRN Reason: Insomnia Last Admin: 11/11/24 21:52 Dose: 6 mg Documented By: SAMARA Methylprednisolone Sodium Succinate (Methylprednisolone Sod Succ 40 Mg/Ml Vial) 40 mg IVPUSH Q12H [facility] Last Admin: 11/12/24 09:00 Dose: 40 mg Documented By: BENSON Quetiapine Fumarate (Quetiapine Fumarate 300 Mg Tablet) 300 mg PO BID [facility] Last Admin: 11/12/24 09:00 Dose: 300 mg Documented By: BENSON Sodium Chloride (0.9 % Sodium Chloride Flush 3 Ml Syringe) 3 ml IVFLUSH QSHIFT [facility] Last Admin: 11/12/24 09:00 Dose: 3 ml Documented By: BENSON Labs 11/12/24 04:22 11/12/24 04:22 Labs: Laboratory Results - last 24 hr 11/11/24 11/11/24 11/11/24 14:10 14:25 14:32 MCV 90.8 MCH 30.3 MCHC 33.3 RDW 13.9 Plt Count 148 L D MPV 9.9 Immature Gran % (Auto) 0.4 Neut % (Auto) 64.1 Lymph % (Auto) 24.2 [place] % (Auto) 10.1 Eos % (Auto) 0.6 Baso % (Auto) 0.6 Lymph # (Auto) 1.2 [place] # (Auto) 0.5 Eos # (Auto) 0.0 Baso # (Auto) 0.0 Abs Immat Gran (auto) 0.02 Absolute Neuts (auto) 3.0 Absolute Nucleated RBC 0.000 Nucleated RBC % (auto) 0.0 PT 10.8 L INR 0.9 VBG pH 7.38 VBG pCO2 50 VBG pO2 86 VBG HCO3 30 H VBG O2 Saturation 98.0 VBG Base Excess 4.7 Anion Gap 12 Estim Creat Clear Calc 89.1 Estimated GFR > 60 Random Glucose 115 Lactic Acid 1.7 Calcium 8.6 D Magnesium 1.7 Total Bilirubin 0.2 Direct Bilirubin < 0.2 AST 42 H ALT 26 Alkaline Phosphatase 101 Troponin I High Sens < 2.7 B-Natriuretic Peptide 45 Total Protein 7.0 Albumin 3.8 Influenza Type A (PCR) NEGATIVE Influenza Type B (PCR) NEGATIVE RSV RNA Qual (PCR) NEGATIVE SARS-CoV-2 RNA (RT-PCR) NEGATIVE 11/12/24 04:22 MCV 92.2 MCH 30.2 MCHC 32.7 RDW 13.9 Plt Count 139 L MPV 10.3 Immature Gran % (Auto) Neut % (Auto) Lymph % (Auto) [place] % (Auto) Eos % (Auto) Baso % (Auto) Lymph # (Auto) [place] # (Auto) Eos # (Auto) Baso # (Auto) Abs Immat Gran (auto) Absolute Neuts (auto) Absolute Nucleated RBC 0.000 Nucleated RBC % (auto) 0.0 PT INR VBG pH VBG pCO2 VBG pO2 VBG HCO3 VBG O2 Saturation VBG Base Excess Anion Gap 12 Estim Creat Clear Calc 94.4 Estimated GFR > 60 Random Glucose 187 H Lactic Acid Calcium 8.6 Magnesium 1.9 Total Bilirubin Direct Bilirubin AST ALT Alkaline Phosphatase Troponin I High Sens B-Natriuretic Peptide Total Protein Albumin Influenza Type A (PCR) Influenza Type B (PCR) RSV RNA Qual (PCR) SARS-CoV-2 RNA (RT-PCR) Assessment and Plan (1) Multifocal pneumonia: Status: Acute Plan 54F PMH opiate dependence on methadone, bipolar disorder, anxiety, presented with cough and body aches Acute hypoxic respiratory failure secondary to pneumonia complicated by reactive airway Continue Ceftriaxone and azithromycin Follow blood cultures wean O2 as tolerated to keep oxygen saturation greater than 91% steroids and bronchodilators Opiate dependence Restart methadone when confirmed Reports 8 months sobriety Bipolar disorder Continue Lexapro, lamotrigine, Seroquel Normocytic anemia No blood loss, H&H stable Follow CBC Mental health Continue home medications DVT prophylaxis with Lovenox MOM prn Full Code Quality Stroke Does the patient have a stroke diagnosis?: No VTE Prior VTE?: No VTE Risk Level:: Medical - moderate - high VTE Device Contraindication: Treatment Not Indicated VTE Drug Contraindication: N/A - Med Ordered
--- NOTE | 2024-11-12 11:32 | MHC.CM.PN ---
[facility]M DELIVERED PT LIVES WITH [facility] AND IS FUNCTIONALLY INDEPENDENT. NO SERVICES OR DME. + HCP (COPY AT HOME, [facility] WILL BRING IN IF ABLE TO LOCATE) PCP DR. STAFFORD DP: HOME, NO SERVICES ANTICIPATED. [facility] WILL TRANSPORT. CM WILL CONTINUE TO FOLLOW FOR ANY CHANGE TO DC PLAN/NEEDS.
[2024-11-12] MEDS: hydrOXYzine HCL 25 MG TABLET PO (17:49)
[2024-11-12] MEDS: cloNIDine HCL 0.1 MG TABLET PO (17:49)
[2024-11-12] MEDS: cefTRIAXone sodium 1 GM VIAL IVPUSH (17:50)
[2024-11-12] MEDS: Enoxaparin Sodium 40 MG/0.4 ML SYRINGE SUBCUT (19:24)
[2024-11-13 03:19] VITALS: BP 141/64; PULSE 52; RESP 18; TEMP 37; O2SAT 94
[2024-11-13 07:40] VITALS: BP 162/70; PULSE 50; RESP 16; TEMP 36.1; O2SAT 91
[2024-11-13] MEDS: Albuterol/Iprat 2.5/0.5MG 3 ML AMPUL.NEB INHALE ×2 (08:20→11:28)
[2024-11-13 08:22] VITALS: PULSE 54; RESP 15; O2SAT 93
[2024-11-13] MEDS: QUEtiapine Fumarate 300 MG TABLET PO (08:32)
[2024-11-13] MEDS: lamoTRIgine 100 MG TABLET PO (08:32)
[2024-11-13] MEDS: Escitalopram Oxalate 20 MG TABLET PO (08:32)
[2024-11-13] MEDS: Azithromycin 500 MG TABLET PO (08:32)
[2024-11-13] MEDS: methylPREDNISolone Sod Succ 40 MG/ML VIAL IVPUSH (08:32)
[2024-11-13] MEDS: Acetaminophen 325 MG TABLET 650 MG PO (08:37)
--- NOTE | 2024-11-13 10:22 | P.DS_ITS ---
DS: Providers Provider Date of Service: 11/13/24 Date of admission: 11/11/24 21:00 Date of discharge: 11/13/24 Primary care physician: Buzz Bermeo MD DS: Diagnosis Discharge Diagnosis (1) Multifocal pneumonia: Status: Acute DS: Summary Hospital Course Hospital Course: History of presenting illness. Date of Service: 11/11/24 Chief Complaint: sob 54F PMH opiate dependence on methadone, bipolar disorder, anxiety, presented with cough and body aches. Patient reports symptoms going back a couple of days. Reporting right-sided chest pain, nonproductive cough, myalgias subjective fevers, chills, fatigue, shortness of breath worse on exertion with wheezing. In ED noted to be hypoxic to 87% on room air, low-grade fever of 100.6, chest x-ray with right middle lobe opacity. Hospital course: 54F PMH opiate dependence on methadone, bipolar disorder, anxiety, presented with cough and body aches and admitted to medical floor with a diagnosis of Acute hypoxic respiratory failure secondary to pneumonia complicated by reactive airway, treated with IV ceftriaxone and azithromycin, blood cultures x2 showed no growth, hypoxia resolved, patient feels better and is eager to be discharged home therefore will discharge home on azithromycin and Ceftin to finish a 5 day course of antibiotics and albuterol inhaler as needed for shortness of breath /wheeze. Opiate dependence continue methadone. Bipolar disorder Continue Lexapro, lamotrigine, Seroquel. Normocytic anemia H&H remained stable. Time Attestation Discharge Coordination Time (in mins): 38 Quality: Safe Use of Opioids Does Pt have an Active Cancer Diagnosis on the Problem List?: No Quality: Stroke Does the patient have a stroke diagnosis?: No Physical Exam Vital Signs: Vital Signs: Last Vital Signs Temp 97.0 F 11/13/24 07:40 Pulse 54 11/13/24 08:22 Resp 15 11/13/24 08:22 BP 162/70 H 11/13/24 07:40 Pulse Ox 91 L 11/13/24 07:40 O2 Del Method Room Air 11/13/24 07:40 O2 Flow Rate 2 11/12/24 06:00 Oxygen Flow Rate 2 11/11/24 17:58 BMI result Body Mass Index 25.1 Const: Other: General resting comfortably , anxious, in no acute distress No JVD lung sounds coarse breath sounds, no rhonchi heart regular rate rhythm, clear S1, S2 positive bowel sounds, abdomen soft, nontender Extremities no edema. neuro alert x3, no focal deficits DS: Data Data Completed and Pending Labs on day of discharge: Preliminary micro results at discharge 11/11/24 18:07 Blood Culture - Preliminary Blood - Venous No growth after 24 hours. 11/11/24 14:25 Blood Culture - Preliminary Blood - Venous No growth after 24 hours. Discharge Plan Discharge Anticipated Discharge Date/Time: 11/13/24 10:18 Patient Disposition: Home, Self-Care Discharge Diagnosis: Pneumonia Referrals: Buzz Bermeo MD [Primary Care Provider] - 1 Week Discharge Medications: New azithromycin 500 mg Tablet 500 mg PO Q24H Qty: 3 0RF cefuroxime axetil 500 mg tablet 500 mg PO Q12H Qty: 7 0RF albuterol sulfate 90 mcg/actuation HFA aerosol inhaler 2 puff inhalation Q4-6H PRN (Reason: shortness of breath or wheezing) Qty: 8.5 0RF Continued methadone 10 mg/5 mL Solution 115 mg PO DAILY clonidine HCl 0.1 mg tablet 0.1 mg PO TID PRN (Reason: insomnia) lamotrigine 100 mg tablet 100 mg PO DAILY escitalopram oxalate 20 mg tablet 20 mg PO DAILY quetiapine [Seroquel] 300 mg tablet 300 mg PO BID hydroxyzine HCl 25 mg tablet 25 - 50 mg PO TID PRN (Reason: insomnia) Discharge Orders: Discharge Order (Routine); Ordered 11/13/24 Ordered By: Gricelda Conrad Diet: Advance to usual diet Activity on Discharge: As tolerated Stand Alone Forms: Patient Portal Discharge page Print Language: [place] Care Plan Goals: Take azithromycin and Ceftin as prescribed Use albuterol inhaler 2 puffs as needed every 4-6 hours for shortness of breath or wheeze Rest plenty of fluids Returned to check with recurrent symptoms all with worsening shortness of breath, high-grade fever Health Concerns: Continue all home medication Plan of Treatment: Follow-up with primary care physician call for appointment Assessment: as above
--- NOTE | 2024-11-13 10:47 | MHC.CM.PN ---
Per MD rounds patient medically cleared for dc home self care. Friend will provide transport at 11:30. RN and MD aware.
[2024-11-13] MEDS: cloNIDine HCL 0.1 MG TABLET PO (10:59)
[2024-11-13] MEDS: hydrOXYzine HCL 25 MG TABLET PO (10:59)
[2024-11-13 11:29] VITALS: PULSE 63; RESP 18; O2SAT 94
--- NOTE | 2024-11-13 12:05 | PC.NURSE ---
bp 129/60 prior to d/c
== END 2024-11-13 12:05 | disposition home or self-care (01) | DRG 193 ==
LOC: HO.ED 18:37 → HO.EDOVER 21:17 → HO.S3 11-12 07:14
PROVIDERS: Physician Assistant Medical; Admitting Provider Internal Medicine; Emergency Provider Emergency Medicine; PCP Internal Medicine; Visit Provider Hospitalist
DX: J18.9 Pneumonia, unspecified organism (principal); J96.01 Acute respiratory failure with hypoxia; F11.20 Opioid dependence, uncomplicated; F17.210 Nicotine dependence, cigarettes, uncomplicated; D64.9 Anemia, unspecified; Z71.6 Tobacco abuse counseling; F31.9 Bipolar disorder, unspecified; F41.9 Anxiety disorder, unspecified; Z20.822 Contact with and (suspected) exposure to COVID-19; Z79.899 Other long term (current) drug therapy
CPT/HCPCS: 0241U; 36415; 71046; 80048; 80076; 82803; 83605; 83735; 83880; 84484; 85025; 85027; 85610; 87040; 93005; 94640; 99285; J0696; J1650; J2919

== ENCOUNTER → 2024-11-11 13:31 | Outpatient (BNV) | payer MEDICARE, MEDICAID, SELFPAY | PROVIDERS: Emergency Provider Emergency Medicine; PCP Internal Medicine; Visit Provider Internal Medicine | DX: R94.31 Abnormal electrocardiogram [ECG] [EKG] (principal) | CPT/HCPCS: 93010 ==

== ENCOUNTER → 2024-11-11 14:01 | Outpatient (BNV) | payer MEDICARE, MEDICAID, SELFPAY | PROVIDERS: PCP Internal Medicine; Visit Provider Radiology Diagnostic Radiology | DX: J18.1 Lobar pneumonia, unspecified organism (principal) | CPT/HCPCS: 71046 ==

== ENCOUNTER → 2024-11-11 17:43 | Outpatient (BNV) | payer MEDICARE, MEDICAID, SELFPAY | PROVIDERS: Emergency Provider Emergency Medicine; PCP Internal Medicine; Visit Provider Internal Medicine | DX: J18.9 Pneumonia, unspecified organism (principal) | CPT/HCPCS: 99232; 99239 ==